=== PATIENT | female | born 1945 | race African-American/Black ===

== ENCOUNTER 2017-04-30 10:59 | Inpatient (IN) | payer OTHER ==
--- NOTE | 2017-04-30 11:14 | PDOC ---
History of Present Illness <Patrick Muniz - Last Filed: 04/30/17 13:44> - General History Source: Patient Exam Limitations: No Limitations - History of Present Illness Initial Comments: 04/30/17 11:55 The patient is a 71 year old female with a significant PMH of former smoker ( quit 3 years ago), insulin dependent diabetes, CAD (s/p stent placement in 2015 , on carvedilol), CVA (2014, on plavix and aspirin), end stage renal failure on dialysis brought in by EMS with worsening shortness of breath on exertion and orthopnea since Saturday. The patient reports that she has dialysis on Saturday, , and Saturday and her last dialysis was this Saturday. She reports that her shortness of breath worsened this morning when going to dialysis. The patient states her shortness of breath is improved with rest. The patient notes that her symptoms were improved by sublingual nitroglycerin and oxygen given by EMS. The patient denies any chest pain, cough, fever, chills, nausea, vomiting, and leg swelling. Vital signs: O2 Sat 92-94 Allergies: statins Past surgical history: Stent placement Social history: Former smoker. No reported alcohol or drug use. 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 Gibbs <Yana Gilbert - Last Filed: 04/30/17 13:59> - General Chief Complaint: Respiratory Stated Complaint: RESPIRATORY DISTRESS Time Seen by Provider: 04/30/17 11:13 Past History - Past Medical History Cardiac Disorders: Yes (STENT) CVA: Yes (2014) COPD: No CHF: Yes Diabetes: Yes Dialysis: Yes (//SAT) HTN: Yes Hypercholesterolemia: Yes Liver Disease: Yes (LIVER CIRRHOSIS) - Surgical History Cardiac Surgery: Yes (STENT) - Suicide/Smoking/Psychosocial Hx Smoking History: Former smoker Have you smoked in the past 12 months: No If you are a former smoker, when did you quit?: 2014 Information on smoking cessation initiated: No Hx Alcohol Use: No Drug/Substance Use Hx: No Substance Use Type: None Hx Substance Use Treatment: No <Patrick Muniz - Last Filed: 04/30/17 13:44> <Yana Gilbert - Last Filed: 04/30/17 13:59> - Past Medical History Allergies/Adverse Reactions: Allergies Allergy/AdvReac Type Severity Reaction Status Date / Time Izkchhk-Oxy-Hgz Reductase AdvReac Unknown Verified 04/30/17 11:01 Inhibitor Home Medications: Ambulatory Orders Carvedilol [Coreg -] 12.5 mg PO BID 04/02/17 Clopidogrel Bisulfate [Clopidogrel] 75 mg PO DAILY 04/02/17 Acetaminophen [Tylenol .Regular Strength -] 650 mg PO Q6H PRN #0 tablet Aspirin Coated [Ecotrin -] 81 mg PO DAILY tab 04/06/17 Calcitriol [Calcitriol -] 0.25 mcg PO DAILY #30 tab 04/06/17 Insulin (Novolog) [Novolog -] 5 units SQ TIDAC units 04/06/17 Insulin Glargine,Hum.rec.anlog [Lantus Solostar PEN (NF)] 18 units SQ HS #1 pen 04/06/17 Ipratropium/Albuterol Sulfate [Combivent Respimat Inhal [place]] 4 gm IH QID #1 aer.w.adap 04/06/17 Review of Systems - Review of Systems Constitutional: No: Chills, Fever Respiratory: Yes: Orthopnea, Shortness of Breath, SOB with Exertion. No: Cough Cardiac (ROS): No: Chest Pain, Edema, Syncope ABD/GI: No: Nausea, Vomiting Neurological: No: Headache, Weakness, Ataxia All Other Systems: Reviewed and Negative <Patrick Muniz - Last Filed: 04/30/17 13:44> - Review of Systems Able to Perform ROS?: Yes <Yana Gilbert - Last Filed: 04/30/17 13:59> *Physical Exam - Vital Signs Last Vital Signs Temp Pulse Resp BP Pulse Ox 86 22 187/80 98 04/30/17 11:02 04/30/17 11:02 04/30/17 11:02 04/30/17 11:02 <Patrick Muniz - Last Filed: 04/30/17 13:44> - Vital Signs Last Vital Signs Temp Pulse Resp BP Pulse Ox 97.8 F 82 22 187/80 98 04/30/17 11:02 04/30/17 11:02 04/30/17 11:02 04/30/17 11:02 04/30/17 11:02 - Physical Exam Comments: 04/30/17 11:48 GENERAL: Patient is awake, alert, and fully oriented. HEAD: Normal with no signs of trauma. EYES: Pupils equal, round and reactive to light, extraocular movements intact, sclera anicteric, conjunctiva clear with no pallor. ENT: Ears normal, nares patent, oropharynx clear without exudates. Moist mucous membranes. NECK: Normal range of motion, supple without lymphadenopathy, JVD, or masses. LUNGS: (+) Slightly decreased breath sounds on the right base. (+)Tachypnea No wheeze/crackles. HEART: (+) 2/6 systolic ejection on the right upper sternal border. ABDOMEN: Soft/nontender/nondistended. BS wnl. No guarding or rebound. No palpable masses. No hepatosplenomegaly. EXTREMITIES: (+) Trace pretibial edema. Normal range of motion. No clubbing or cyanosis. No cords, erythema, or tenderness. NEUROLOGICAL: (+) Patient is speaking in 2-3 word sentences. Cranial nerves II through XII grossly intact. PSYCH: Normal mood, normal affect. 04/30/17 11:54 <Yana Gilbert - Last Filed: 04/30/17 13:59> Heart Score/ECG Review #1 ECG reviewed & interpreted by me at: 11:09 General ECG Interpretation: Sinus Rhythm, Normal Rate (81), Normal Intervals ( qtc 490), No acute ischemic changes <Patrick Muniz - Last Filed: 04/30/17 13:44> ED Treatment Course - LABORATORY CBC & Chemistry Diagram: 04/30/17 12:25 04/30/17 12:25 <Patrick Muniz - Last Filed: 04/30/17 13:44> - LABORATORY CBC & Chemistry Diagram: 04/30/17 12:25 04/30/17 12:25 <Yana Gilbert - Last Filed: 04/30/17 13:59> Medical Decision Making - Medical Decision Making 04/30/17 11:36 A portion of this note was documented by scribe services under my direction. I have reviewed the details of the note, within reason, and agree with the documentation with the following case summary and management plan written by me. 71-year-old female with history of insulin-dependent diabetes, CAD with CO, CVA , end-stage renal on Saturday//Saturday dialysis presents with shortness of breath, brought in by EMS. Last dialysis was Saturday, has had progressive dyspnea on exertion and orthopnea since Saturday, exacerbated this morning on her way to dialysis. No chest pain, no fevers or chills or cough, symptoms improved after she was given nitroglycerin by EMS. Vitals as noted, tachypnea, O2 sat on room air is 92%, improves to 99% on 2 L Speaks 3-4 words at a time, otherwise subjectively more comfortable Decreased breath sounds right base, otherwise clear Trace edema 71-year-old female with end-stage renal disease on dialysis and cardiac history presents with worsening shortness of breath over the last 72 hours, question volume overload from renal failure versus acute CHF. Improved after sublingual nitroglycerin and oxygen applied. Labs, EKG Chest x-ray Blood pressure control Will need dialysis, will contact Dr. Altamirano Admission 04/30/17 13:44 K 5.7, Cr 6.7, Trop 0.1. Feels much better after meds and O2, CXR shows moderate cardiomegaly with congestion and R pleural effusion, consistent with exam. Dr. Gibbs consulted for HD. Accepted for inpatient med/surg by Dr. Cervantes. <Patrick Muniz - Last Filed: 04/30/17 13:44> - Medical Decision Making 1:50pm Consulted with Dr. Major. Will arrange for dialysis. <Yana Gilbert - Last Filed: 04/30/17 13:59> *DC/Admit/Observation/Transfer - Discharge Dispostion Admit: Yes <Patrick Muniz - Last Filed: 04/30/17 13:44> - Attestations Scribe Attestion: 04/30/17 12:20 Documentation prepared by Yana Gilbert, acting as medical lab technician for Patrick Muniz MD. <Yana Gilbert - Last Filed: 04/30/17 13:59> Diagnosis at time of Disposition: Shortness of breath, ESRD (end stage renal disease) on dialysis, Hyperkalemia - Discharge Dispostion Condition at time of disposition: Fair - Referrals Referrals: Tamiko Gibbs MD [Primary Care Provider] - - Patient Instructions - Post Discharge Activity
[2017-04-30] MEDS ORDERED: FUROSEMIDE 40 MG/4 ML INJECTABLE VIAL IVPUSH ONE (11:26)
[2017-04-30] MEDS ORDERED: ASPIRIN 81 MG CHEWABLE TABLETS PO ONE (11:26)
[2017-04-30] MEDS ORDERED: NITROGLYCERIN 2% OINTMENT - 1GM PACKET TD ONE ×2 (11:28→12:16)
[2017-04-30] MEDS ORDERED: ASPIRIN 81 MG CHEWABLE TABLETS ONE (12:15)
--- NOTE | 2017-04-30 12:16 | EKG ---
Test Reason : Blood Pressure : / mmHG Vent. Rate : 081 BPM Atrial Rate : 081 BPM P-R Int : 134 ms QRS Dur : 080 ms QT Int : 422 ms P-R-T Axes : 047 033 023 degrees QTc Int : 490 ms NORMAL SINUS RHYTHM PROLONGED QT ABNORMAL ECG WHEN COMPARED WITH ECG OF 02-APR-2017 13:48, PREMATURE SUPRAVENTRICULAR COMPLEXES ARE NO LONGER PRESENT Confirmed by GULSHAN MELENDREZ, TROY ([id number]) on 04/30/2017 12:15:56 PM Referred By: Confirmed By:TROY GAFFNEY MD
[2017-04-30 12:40] LABS: BASOPHIL 0.6 % (0-2.0); EOSINOPHIL 0.5 % (0-4.5); MCH 28.8 pg (25.7-33.7); MCHC 31.2 g/dl (32.0-36.0); MEAN CELL VOLUME 92.4 fl (80-96); MEAN PLT VOLUME 9.7 fl (7.5-11.1); NEUTROPHILS 82.3 % (42.8-82.8); PLATELET COUNT 161 K/MM3 (134-434); WHITE BLOOD COUNT 10.3 K/mm3 (4.0-10.0)
[2017-04-30 13:03] LABS: ALBUMIN 3.6 g/dl (3.4-5.0); ANION GAP 9 (8-16); BILIRUBIN,TOTAL 0.2 mg/dL (0.2-1.0); CO2 22 mmol/L (21-32); CREATININE 6.7 mg/dL (0.55-1.02); GLUCOSE,RANDOM 178 mg/dL (74-106); SGOT/AST 18 U/L (15-37); SGPT/ALT 26 U/L (12-78); TOT PROT 6.9 g/dl (6.4-8.2)
[2017-04-30 13:18] LABS: ALK PHOS 151 U/L (45-117); CPK 64 IU/L (26-192)
[2017-04-30 13:29] LABS: INR 0.98 (0.82-1.09); PROTHROMBIN TIME (PATIENT) 11.1 SEC (9.98-11.88)
[2017-04-30 15:26] VITALS: BMI 36.1
--- NOTE | 2017-04-30 15:33 | CON.CARD ---
Consult Consult Specialty:: Cardiology Referred by:: Dr Cervantes Reason for Consultation:: sob - History of Present Illness Chief Complaint: sob History of Present Illness: She is a 71 year old female with a PMH of CAD (s/p stent placement 11/2015 on Plavix and ASA), CVA (2014), ESRD on HD, and 30 pack year smoking history ( cessation for the past 3 years). She presents now with LORA. She states that this SOB has been gradual over the past 3 days. Echocardiogram 04/03/17: EF 66% Normal LV size and function Normal RV size and function Reduced diastolic compliance Elevated pulmonary pressures RVSP 50 - [address] chest no PE. 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 Travel: Yes ([place]) Home Medications - Allergies Allergies/Adverse Reactions: Allergies Allergy/AdvReac Type Severity Reaction Status Date / Time Gdsqwbz-Yiv-Ktj Reductase AdvReac Unknown Verified 04/30/17 11:01 Inhibitor - Home Medications Home Medications: Ambulatory Orders Carvedilol [Coreg -] 12.5 mg PO BID 04/02/17 Clopidogrel Bisulfate [Clopidogrel] 75 mg PO DAILY 04/02/17 Acetaminophen [Tylenol .Regular Strength -] 650 mg PO Q6H PRN #0 tablet Aspirin Coated [Ecotrin -] 81 mg PO DAILY tab 04/06/17 Calcitriol [Calcitriol -] 0.25 mcg PO DAILY #30 tab 04/06/17 Insulin (Novolog) [Novolog -] 5 units SQ TIDAC units 04/06/17 Insulin Glargine,Hum.rec.anlog [Lantus Solostar PEN (NF)] 18 units SQ HS #1 pen 04/06/17 Ipratropium/Albuterol Sulfate [Combivent Respimat Inhal [place]] 4 gm IH QID #1 aer.w.adap 04/06/17 Family Disease History - Family Disease History Family Disease History: Other: Father ( 97), Mother (: 62 CKD/CAD) Vital Signs: Vital Signs Temperature 97.8 F 04/30/17 11:02 Pulse Rate 68 04/30/17 14:50 Respiratory Rate 18 04/30/17 14:50 Blood Pressure 173/151 04/30/17 14:50 O2 Sat by Pulse Oximetry (%) 100 04/30/17 14:50 Constitutional: Yes: No Distress, Calm Eyes: Yes: Conjunctiva Clear, EOM Intact HENT: Yes: Atraumatic, Normocephalic Neck: Yes: Supple, Trachea Midline Respiratory: Yes: Rales (rt base>lt base) Gastrointestinal: Yes: Normal Bowel Sounds, Soft, Abdomen, Obese Renal/: Yes: WNL Cardiovascular: Yes: Regular Rate and Rhythm JVD: Yes Carotid Bruit: No PMI: Displaced Heart Sounds: Yes: S1, S2 Murmur: Yes: Systolic Murmur, Grade 2 Musculoskeletal: Yes: WNL Extremities: Yes: WNL Edema: No Peripheral Pulses WNL: Yes - Other Data Labs, Other Data: CBC, BMP 04/30/17 12:25 04/30/17 12:25 INR, PTT INR 0.98 (0.82-1.09) 04/30/17 12:25 Troponin, BNP 04/30/17 12:25 Troponin I 0.10 H B-Natriuretic Peptide 57463.29 H Troponin, BNP 04/30/17 12:25 Troponin I 0.10 H B-Natriuretic Peptide 88170.29 H Imaging - Results Chest X-ray: Report Reviewed (cm, inc vasc markings, rt effusion) EKG: Report Reviewed (nsr prolonged qt) Problem List - Problems (1) Shortness of breath Assessment/Plan: I believe that her sob is both pulmonary and fluid overload. Her pulm htn is due to renal disease and fluid overload. needs HD. No evidence of ACS. will benefit probably from reduction in dry weight. No need for further cardiac testing. Code(s): R06.02 - SHORTNESS OF BREATH
[2017-04-30] MEDS ORDERED: HEPARIN NA (PORCINE) 5,000 UNITS/ML 1ML VIAL IVPUSH ONE (16:00)
--- NOTE | 2017-04-30 16:37 | CON.NEP ---
Consult Consult Specialty:: Nephrology Referred by:: Dr. Muniz Reason for Consultation:: ESRD on HD, Fluid overload - History of Present Illness Chief Complaint: SOB History of Present Illness: This is a 71 year old woman with PMhx of ESRD on HD (TTS) secondary to hypertensive + diabetic nephropathy, CAD s/p PCI and stent placement, CVA, Former smoker who presents with progressive SOB. Pt last had dialysis on Saturday w/o issues. Pt reports compliance with all her dialysis treatments. Denies any dietary indiscretion. Pt does make some urine. No chest pain, wheezing, fever/chills. 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 Travel: Yes ([place]) Home Medications - Allergies Allergies/Adverse Reactions: Allergies Allergy/AdvReac Type Severity Reaction Status Date / Time Vikczxg-Rqo-Qss Reductase AdvReac Unknown Verified 04/30/17 11:01 Inhibitor - Home Medications Home Medications: Ambulatory Orders Carvedilol [Coreg -] 12.5 mg PO BID 04/02/17 Clopidogrel Bisulfate [Clopidogrel] 75 mg PO DAILY 04/02/17 Acetaminophen [Tylenol .Regular Strength -] 650 mg PO Q6H PRN #0 tablet Aspirin Coated [Ecotrin -] 81 mg PO DAILY tab 04/06/17 Ipratropium/Albuterol Sulfate [Combivent Respimat Inhal [place]] 4 gm IH QID #1 aer.w.adap 04/06/17 Cyanocobalamin [Vitamin B12 -] 500 mcg PO DAILY 04/30/17 Doxazosin Mesylate [Cardura -] 1 mg PO DAILY 04/30/17 Hydralazine HCl 100 mg PO TID 04/30/17 Insulin (Levemir) [Levemir Vial] 28 unit SQ HS 04/30/17 Insulin (Novolog) [Novolog -] 10 units SQ BID 04/30/17 Insulin Aspart [Novolog] 15 unit SQ ACDIN 04/30/17 Insulin Glargine,Hum.rec.anlog [Lantus Solostar PEN (NF)] 28 units SQ HS Isosorbide Mononitrate [Isosorbide Mononitrate ER] 60 mg PO DAILY 04/30/17 Vitamin B Comp W-C [Nephro-Katie -] 1 tablet PO DAILY 04/30/17 Family Disease History - Family Disease History Family Disease History: Other: Father ( 97), Mother (: 62 CKD/CAD) Review of Systems - Review of Systems Constitutional: reports: No Symptoms Eyes: reports: No Symptoms HENT: reports: No Symptoms Neck: reports: No Symptoms Cardiovascular: reports: Shortness of Breath. denies: Chest Pain, Edema, Palpitations Respiratory: reports: Cough, Exercise Intolerance, SOB, SOB on Exertion. denies : Snoring, Wheezing Gastrointestinal: reports: No Symptoms Genitourinary: reports: No Symptoms Musculoskeletal: reports: No Symptoms Integumentary: reports: No Symptoms Neurological: reports: No Symptoms Nephrology Consult - Height Height: 5 ft - Weight Weight: 83.915 kg - BMI Body Mass Index (BMI): 36.1 - Lab Results CBC,BMP: CBC, BMP 04/30/17 12:25 04/30/17 12:25 Anion Gap: Anion Gap Anion Gap 9 (8-16) 04/30/17 12:25 - Imaging Chest X-ray: Report Reviewed - Physical Examination Vital Signs: Vital Signs Temperature 97.8 F 04/30/17 11:02 Pulse Rate 68 04/30/17 14:50 Respiratory Rate 18 04/30/17 14:50 Blood Pressure 173/151 04/30/17 14:50 O2 Sat by Pulse Oximetry (%) 100 04/30/17 14:50 Constitutional: Yes: Well Nourished, No Distress, Calm Eyes: Yes: Conjunctiva Clear HENT: Yes: Atraumatic, Normocephalic Neck: Yes: Supple Cardiovascular: Yes: Regular Rate and Rhythm, S1, S2. No: Murmur, Rub Respiratory: Yes: Regular, On Nasal O2, Rhonchi, SOB, SOB on Exertion Gastrointestinal: Yes: Normal Bowel Sounds, Soft, Abdomen, Obese Renal/: No: Anuria, Bladder Distention, CVA Tenderness - Left, CVA Tenderness - Right Access for Hemodialysis: AV Fistula Edema: Yes Edema: LLE: Trace, RLE: Trace Neurological: Yes: Alert, Oriented Problem List - Problems (1) ESRD (end stage renal disease) on dialysis Code(s): N18.6 - END STAGE RENAL DISEASE; Z99.2 - DEPENDENCE ON RENAL DIALYSIS (2) Shortness of breath Code(s): R06.02 - SHORTNESS OF BREATH (3) CAD (coronary artery disease) Code(s): I25.10 - ATHSCL HEART DISEASE OF [place] CORONARY ARTERY W/O ANG PCTRS (4) COPD (chronic obstructive pulmonary disease) Code(s): J44.9 - CHRONIC OBSTRUCTIVE PULMONARY DISEASE, UNSPECIFIED (5) CVA (cerebral vascular accident) Code(s): I63.9 - CEREBRAL INFARCTION, UNSPECIFIED Assessment/Plan 71 year old woman with PMhx of ESRD on HD (TTS) secondary to hypertensive + diabetic nephropathy, CAD s/p PCI and stent placement, CVA, Former smoker who presents with progressive SOB #ESRD on HD with fluid overload and sob etiology likely dietary indiscretion +/- suboptimal UF with HD for urgent HD today with UF goal around 3-3.5L as tolerated low sodium diet, 1.2 L fluid restriction Start Oral Lasix daily Trend daily weights #CAD/CHF Seen by cardiology no evidence of ACS #Hypertension BP is above goal give hydralazine 100mg and Cardura 1mg now goal BP < 150/90 resume remainder of home meds after dialysis Thank you Will follow Rory Major DO
[2017-04-30] MEDS: hydrALAZINE HCL 50 MG TABLET (FP) PO SCH ×2 (17:21→21:31)
[2017-04-30] MEDS ORDERED: PATIENT'S OWN MEDICATION (NON-FORMULARY) (Ipratropium/Albuterol Sulfate [Combivent Respima IH SCH (18:00)
[2017-04-30] MEDS ORDERED: INSULIN (NOVOLOG) ASPART 100 UNITS/ML 10ML VIAL ONE (20:43)
[2017-04-30] MEDS: ACETAMINOPHEN 325 MG TABLET (FP) PO PRN (21:31)
[2017-04-30] MEDS: CARVEDILOL 12.5 MG TABLET (FP) PO SCH (21:31)
[2017-04-30] MEDS: INSULIN SLIDING SCALE (NOVOLOG) 1 VIAL SQ SCH (21:36)
[2017-04-30] MEDS: INSULIN DETEMIR 100 UNITS/ML MDV SQ SCH (21:37)
[2017-04-30] MEDS: HEPARIN NA (PORCINE) 5,000 UNITS/ML 1ML VIAL SQ SCH (21:41)
[2017-04-30] MEDS ORDERED: hydrALAZINE HCL 50 MG TABLET (FP) PO SCH (22:00)
[2017-04-30] MEDS: ALBUTEROL SO4 2.5/IPRATROPIUM 0.5 INH SOL 3 ML VIAL.NEB. NEB SCH (23:40)
[2017-05-01] MEDS: DOXAZOSIN MESYLATE 1 MG TABLET PO SCH ×2 (01:29→13:21)
[2017-05-01] MEDS: ACETAMINOPHEN 325 MG TABLET (FP) PO PRN (03:50)
[2017-05-01] MEDS: hydrALAZINE HCL 50 MG TABLET (FP) PO SCH ×3 (05:42→22:09)
[2017-05-01] MEDS: ALBUTEROL SO4 2.5/IPRATROPIUM 0.5 INH SOL 3 ML VIAL.NEB. NEB SCH ×3 (06:20→18:15)
[2017-05-01] MEDS: INSULIN SLIDING SCALE (NOVOLOG) 1 VIAL SQ SCH ×4 (06:22→22:14)
[2017-05-01 07:13] LABS: BASOPHIL 0.8 % (0-2.0); EOSINOPHIL 1.6 % (0-4.5); MCH 28.8 pg (25.7-33.7); MCHC 32.2 g/dl (32.0-36.0); MEAN CELL VOLUME 89.4 fl (80-96); MEAN PLT VOLUME 9.4 fl (7.5-11.1); NEUTROPHILS 67.5 % (42.8-82.8); PLATELET COUNT 166 K/MM3 (134-434); RDW 15.4 % (11.6-15.6); WHITE BLOOD COUNT 10.6 K/mm3 (4.0-10.0)
[2017-05-01 07:59] LABS: ALBUMIN 3.6 g/dl (3.4-5.0); ANION GAP 10 (8-16); CALCIUM 8.4 mg/dL (8.5-10.1); CO2 30 mmol/L (21-32); MAGNESIUM 1.8 mg/dL (1.8-2.4); SGOT/AST 18 U/L (15-37); SGPT/ALT 23 U/L (12-78)
[2017-05-01 08:03] LABS: ALK PHOS 148 U/L (45-117); BILIRUBIN,TOTAL 0.5 mg/dL (0.2-1.0); CREATININE 4.7 mg/dL (0.55-1.02); GLUCOSE,RANDOM 72 mg/dL (74-106); PHOSPHOROUS 4.4 mg/dL (2.5-4.9); TOT PROT 7.1 g/dl (6.4-8.2)
[2017-05-01] MEDS ORDERED: DOXAZOSIN MESYLATE 1 MG TABLET PO SCH (10:00)
[2017-05-01] MEDS: CYANOCOBALAMIN 1,000 MCG TABLET (FP) PO SCH (10:57)
[2017-05-01] MEDS: CLOPIDOGREL BISULFATE 75 MG TABLET (FP) PO SCH (10:57)
[2017-05-01] MEDS: HEPARIN NA (PORCINE) 5,000 UNITS/ML 1ML VIAL SQ SCH ×2 (10:58→22:10)
[2017-05-01] MEDS: ASPIRIN COATED 81 MG TABLET.EC PO SCH (10:59)
[2017-05-01] MEDS: CARVEDILOL 12.5 MG TABLET (FP) PO SCH ×2 (11:05→22:09)
[2017-05-01] MEDS: ISOSORBIDE MONONITRATE 60 MG TAB.SR.24H (FP) PO SCH (11:05)
[2017-05-01] MEDS: FUROSEMIDE 40 MG TABLET (FP) PO SCH ×2 (11:08→13:41)
[2017-05-01] MEDS: VITAMIN B COMP W-C 1 EA TABLET PO SCH (11:09)
--- NOTE | 2017-05-01 14:20 | PN ---
Progress Note, Physician Chief Complaint: no sob. lying flat. History of Present Illness: She is a 71 year old female with a PMH of CAD (s/p stent placement 11/2015 on Plavix and ASA), CVA (2014), ESRD on HD, and 30 pack year smoking history ( cessation for the past 3 years). She presents now with LORA. She states that this SOB has been gradual over the past 3 days. Improved post HD. Echocardiogram 04/03/17: EF 66% Normal LV size and function Normal RV size and function Reduced diastolic compliance Elevated pulmonary pressures RVSP 50 - [address] chest no PE. - Current Medication List Current Medications: Active Medications Acetaminophen (Tylenol -) 650 mg PO Q6H PRN PRN Reason: FEVER OR PAIN Last Admin: 05/01/17 03:50 Dose: 650 mg Albuterol/Ipratropium (Duoneb -) 1 amp NEB QIDR [facility] Last Admin: 05/01/17 12:00 Dose: 1 amp Aspirin (Ecotrin -) 81 mg PO DAILY [facility] Last Admin: 05/01/17 10:59 Dose: 81 mg Carvedilol (Coreg -) 12.5 mg PO BID [facility] Last Admin: 05/01/17 11:05 Dose: 12.5 mg Clopidogrel Bisulfate (Plavix -) 75 mg PO DAILY [facility] Last Admin: 05/01/17 10:57 Dose: 75 mg Cyanocobalamin (Vitamin B12 -) 500 mcg PO DAILY [facility] Last Admin: 05/01/17 10:57 Dose: 500 mcg Doxazosin Mesylate (Cardura -) 1 mg PO DAILY [facility] Last Admin: 05/01/17 13:21 Dose: Not Given Furosemide (Lasix -) 40 mg PO DAILY [facility] Last Admin: 05/01/17 13:41 Dose: 40 mg Heparin Sodium (Porcine) (Heparin -) 5,000 unit SQ BID [facility] Last Admin: 05/01/17 10:58 Dose: Not Given Hydralazine HCl (Apresoline -) 100 mg PO TID [facility] Last Admin: 05/01/17 05:42 Dose: 100 mg Insulin Aspart (Novolog Vial Sliding Scale -) 1 vial SQ ACHS [facility] PRN Reason: Protocol Last Admin: 05/01/17 12:06 Dose: 6 units Insulin Detemir (Levemir Vial) 28 units SQ HS [facility] Last Admin: 04/30/17 21:37 Dose: 28 units Isosorbide Mononitrate (Imdur -) 60 mg PO DAILY [facility] Last Admin: 05/01/17 11:05 Dose: 60 mg Multivit/Ca Carb/B Cmplx/FA/Prenat (Nephro-Katie -) 1 tablet PO DAILY [facility] Last Admin: 05/01/17 11:09 Dose: Not Given - Objective Vital Signs: Vital Signs Temperature 99.3 F 05/01/17 11:00 Pulse Rate 74 05/01/17 11:00 Respiratory Rate 18 05/01/17 11:00 Blood Pressure 140/60 05/01/17 11:00 O2 Sat by Pulse Oximetry (%) 100 04/30/17 23:00 Constitutional: Yes: No Distress, Calm Eyes: Yes: Conjunctiva Clear, EOM Intact HENT: Yes: Atraumatic, Normocephalic Neck: Yes: Supple, Trachea Midline Cardiovascular: Yes: Regular Rate and Rhythm Respiratory: Yes: CTA Bilaterally Gastrointestinal: Yes: Normal Bowel Sounds, Soft, Abdomen, Obese Extremities: Yes: WNL Edema: No Peripheral Pulses WNL: Yes Labs: CBC, BMP 05/01/17 06:15 05/01/17 06:15 INR, PTT INR 0.98 (0.82-1.09) 04/30/17 12:25 Problem List - Problems (1) Shortness of breath Assessment/Plan: I believe that her sob is both pulmonary and fluid overload. Her pulm htn is due to renal disease and fluid overload. needs HD. No evidence of ACS. will benefit probably from reduction in dry weight. No need for further cardiac testing. will see as needed. Code(s): R06.02 - SHORTNESS OF BREATH
--- NOTE | 2017-05-01 17:33 | PN ---
Progress Note (short form) - Note Progress Note: Renal follow up for ESRD on HD Pt seen and examined at the bedside awake and alert no acute complaints no sob, chest pain s/p HD yesterday with improvement in breathing Vital Signs Temperature 98.2 F 05/01/17 15:28 Pulse Rate 74 05/01/17 15:28 Respiratory Rate 18 05/01/17 15:28 Blood Pressure 110/52 05/01/17 15:28 O2 Sat by Pulse Oximetry (%) 100 04/30/17 23:00 Intake & Output 04/28/17 04/29/17 04/30/17 05/01/17 23:59 23:59 23:59 23:59 Intake Total 850 Balance 850 Weight 83.915 kg 85.139 kg NAD awake and alert RRR CTA no LE edema CBC, BMP 05/01/17 06:15 05/01/17 06:15 Current Medications Acetaminophen (Tylenol -) 650 mg PO Q6H PRN PRN Reason: FEVER OR PAIN Last Admin: 05/01/17 03:50 Dose: 650 mg Albuterol/Ipratropium (Duoneb -) 1 amp NEB QIDR [facility] Last Admin: 05/01/17 12:00 Dose: 1 amp Aspirin (Ecotrin -) 81 mg PO DAILY [facility] Last Admin: 05/01/17 10:59 Dose: 81 mg Carvedilol (Coreg -) 12.5 mg PO BID [facility] Last Admin: 05/01/17 11:05 Dose: 12.5 mg Clopidogrel Bisulfate (Plavix -) 75 mg PO DAILY [facility] Last Admin: 05/01/17 10:57 Dose: 75 mg Cyanocobalamin (Vitamin B12 -) 500 mcg PO DAILY [facility] Last Admin: 05/01/17 10:57 Dose: 500 mcg Doxazosin Mesylate (Cardura -) 1 mg PO DAILY [facility] Last Admin: 05/01/17 13:21 Dose: Not Given Furosemide (Lasix -) 40 mg PO DAILY [facility] Last Admin: 05/01/17 13:41 Dose: 40 mg Heparin Sodium (Porcine) (Heparin -) 5,000 unit SQ BID [facility] Last Admin: 05/01/17 10:58 Dose: Not Given Hydralazine HCl (Apresoline -) 100 mg PO TID [facility] Last Admin: 05/01/17 14:48 Dose: Not Given Insulin Aspart (Novolog Vial Sliding Scale -) 1 vial SQ ACHS [facility] PRN Reason: Protocol Last Admin: 05/01/17 17:13 Dose: Not Given Insulin Detemir (Levemir Vial) 28 units SQ HS [facility] Last Admin: 04/30/17 21:37 Dose: 28 units Isosorbide Mononitrate (Imdur -) 60 mg PO DAILY [facility] Last Admin: 05/01/17 11:05 Dose: 60 mg Multivit/Ca Carb/B Cmplx/FA/Prenat (Nephro-Katie -) 1 tablet PO DAILY [facility] Last Admin: 05/01/17 11:09 Dose: Not Given 71 year old woman with PMhx of ESRD on HD (TTS) secondary to hypertensive + diabetic nephropathy, CAD s/p PCI and stent placement, CVA, Former smoker who presents with progressive SOB #ESRD on HD with fluid overload and sob clinically improved for dialysis tomorrow morning with UF as tolerated #CAD/CHF Seen by cardiology no evidence of ACS #Hypertension Continue Coreg and Hydralazine BID, Lasix Daily continue Imdur if indicated by cardiology can d/c cardura goal BP < 140/90 will titrate meds as needed to achieve goal BP Thank you Will follow Rory Major DO Problem List - Problems (1) ESRD (end stage renal disease) on dialysis Code(s): N18.6 - END STAGE RENAL DISEASE; Z99.2 - DEPENDENCE ON RENAL DIALYSIS (2) Shortness of breath Code(s): R06.02 - SHORTNESS OF BREATH (3) CAD (coronary artery disease) Code(s): I25.10 - ATHSCL HEART DISEASE OF [place] CORONARY ARTERY W/O ANG PCTRS (4) COPD (chronic obstructive pulmonary disease) Code(s): J44.9 - CHRONIC OBSTRUCTIVE PULMONARY DISEASE, UNSPECIFIED (5) CVA (cerebral vascular accident) Code(s): I63.9 - CEREBRAL INFARCTION, UNSPECIFIED
--- NOTE | 2017-05-01 18:47 | HP ---
Admitting History and Physical - Primary Care Physician PCP: Theresa Cervantes - Admission Chief Complaint: SOB History of Present Illness: The patient is a 71 year old female with a significant PMH of former smoker ( quit 3 years ago), insulin dependent diabetes, CAD (s/p stent placement in 2015 , on carvedilol), CVA (2014, on plavix and aspirin), end stage renal failure on dialysis brought in by EMS with worsening shortness of breath on exertion and orthopnea since Saturday. The patient reports that she has dialysis on Saturday, , and Saturday and her last dialysis was this Saturday. She reports that her shortness of breath worsened this morning when going to dialysis. The patient states her shortness of breath is improved with rest. The patient notes that her symptoms were improved by sublingual nitroglycerin and oxygen given by EMS. The patient denies any chest pain, cough, fever, chills, nausea, vomiting, and leg swelling. 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 of Recent Travel: Yes ([place]) Home Medications - Allergies Allergies/Adverse Reactions: Allergies Allergy/AdvReac Type Severity Reaction Status Date / Time Mfdemhd-Tdc-Ahb Reductase AdvReac Unknown Verified 04/30/17 11:01 Inhibitor - Home Medications Home Medications: Ambulatory Orders Carvedilol [Coreg -] 12.5 mg PO BID 04/02/17 Clopidogrel Bisulfate [Clopidogrel] 75 mg PO DAILY 04/02/17 Acetaminophen [Tylenol .Regular Strength -] 650 mg PO Q6H PRN #0 tablet Aspirin Coated [Ecotrin -] 81 mg PO DAILY tab 04/06/17 Ipratropium/Albuterol Sulfate [Combivent Respimat Inhal [place]] 4 gm IH QID #1 aer.w.adap 04/06/17 Cyanocobalamin [Vitamin B12 -] 500 mcg PO DAILY 04/30/17 Doxazosin Mesylate [Cardura -] 1 mg PO DAILY 04/30/17 Hydralazine HCl 100 mg PO TID 04/30/17 Insulin (Levemir) [Levemir Vial] 28 unit SQ HS 04/30/17 Insulin (Novolog) [Novolog -] 10 units SQ BID 04/30/17 Insulin Aspart [Novolog] 15 unit SQ ACDIN 04/30/17 Insulin Glargine,Hum.rec.anlog [Lantus Solostar PEN (NF)] 28 units SQ HS Isosorbide Mononitrate [Isosorbide Mononitrate ER] 60 mg PO DAILY 04/30/17 Vitamin B Comp W-C [Nephro-Katie -] 1 tablet PO DAILY 04/30/17 Family Disease History - Family Disease History Family Disease History: Other: Father ( 97), Mother (: 62 CKD/CAD) Review of Systems - Review of Systems Constitutional: reports: Weakness Eyes: reports: No Symptoms HENT: reports: No Symptoms Neck: reports: No Symptoms Cardiovascular: reports: Shortness of Breath Respiratory: reports: SOB, SOB on Exertion Gastrointestinal: reports: No Symptoms Genitourinary: reports: No Symptoms Breasts: reports: No Symptoms Reported Musculoskeletal: reports: No Symptoms Integumentary: reports: No Symptoms Neurological: reports: No Symptoms Endocrine: reports: No Symptoms Hematology/Lymphatic: reports: No Symptoms Psychiatric: reports: No Symptoms Physical Examination Vital Signs: Vital Signs Temperature 98.3 F 05/01/17 18:00 Pulse Rate 82 05/01/17 18:00 Respiratory Rate 20 05/01/17 18:00 Blood Pressure 134/86 05/01/17 18:00 O2 Sat by Pulse Oximetry (%) 100 04/30/17 23:00 Constitutional: Yes: Well Nourished, No Distress, Calm Cardiovascular: Yes: Regular Rate and Rhythm Respiratory: Yes: Regular Musculoskeletal: Yes: WNL Extremities: Yes: WNL Edema: No Peripheral Pulses WNL: Yes Neurological: Yes: Alert, Oriented Psychiatric: Yes: Alert, Oriented Labs: CBC, BMP 05/01/17 06:15 05/01/17 06:15 Imaging - Results Chest X-ray: Report Reviewed Problem List - Problems (1) ESRD (end stage renal disease) on dialysis Assessment/Plan: -s/p dialysis yesterday, feels much better -seen by Nephrology -Cr improved Code(s): N18.6 - END STAGE RENAL DISEASE; Z99.2 - DEPENDENCE ON RENAL DIALYSIS (2) Shortness of breath Assessment/Plan: -secondary to Pulmonary congestion/ fluid overload -feels much better -Nasal o2 - Code(s): R06.02 - SHORTNESS OF BREATH (3) COPD (chronic obstructive pulmonary disease) Assessment/Plan: -nasal o2 as needed -nebulizer treatment Code(s): J44.9 - CHRONIC OBSTRUCTIVE PULMONARY DISEASE, UNSPECIFIED (4) Pulmonary HTN Assessment/Plan: -seen by cardiology -secondary to ESRD Code(s): I27.20 - PULMONARY HYPERTENSION, UNSPECIFIED (5) Hyperkalemia Assessment/Plan: -resolved after dialysis Code(s): E87.5 - HYPERKALEMIA Assessment/Plan see problem list
[2017-05-01] MEDS ORDERED: INSULIN (NOVOLOG) ASPART 100 UNITS/ML 10ML VIAL ONE (21:58)
[2017-05-01] MEDS: INSULIN DETEMIR 100 UNITS/ML MDV SQ SCH (22:15)
[2017-05-02] MEDS: ALBUTEROL SO4 2.5/IPRATROPIUM 0.5 INH SOL 3 ML VIAL.NEB. NEB SCH ×3 (00:19→12:05)
[2017-05-02] MEDS: INSULIN SLIDING SCALE (NOVOLOG) 1 VIAL SQ SCH ×2 (06:24→12:51)
[2017-05-02] MEDS ORDERED: HEPARIN NA (PORCINE) 5,000 UNITS/ML 1ML VIAL IVPUSH ONE (07:15)
[2017-05-02 09:44] LABS: MCH 28.8 pg (25.7-33.7); MCHC 31.7 g/dl (32.0-36.0); MEAN CELL VOLUME 90.7 fl (80-96); MEAN PLT VOLUME 10.3 fl (7.5-11.1); PLATELET COUNT 164 K/MM3 (134-434); RDW 15.7 % (11.6-15.6); WHITE BLOOD COUNT 9.7 K/mm3 (4.0-10.0)
[2017-05-02] MEDS ORDERED: FUROSEMIDE 40 MG TABLET (FP) PO SCH (10:00)
[2017-05-02 10:12] LABS: ANION GAP 14 (8-16); CO2 23 mmol/L (21-32)
[2017-05-02 10:15] LABS: CALCIUM 7.3 mg/dL (8.5-10.1); CREATININE 6.4 mg/dL (0.55-1.02); PHOSPHOROUS 5.4 mg/dL (2.5-4.9)
[2017-05-02] MEDS: CARVEDILOL 12.5 MG TABLET (FP) PO SCH (10:25)
[2017-05-02] MEDS: ASPIRIN COATED 81 MG TABLET.EC PO SCH (10:25)
[2017-05-02] MEDS: hydrALAZINE HCL 50 MG TABLET (FP) PO SCH (10:25)
[2017-05-02] MEDS: HEPARIN NA (PORCINE) 5,000 UNITS/ML 1ML VIAL SQ SCH (10:25)
[2017-05-02] MEDS: ISOSORBIDE MONONITRATE 60 MG TAB.SR.24H (FP) PO SCH (10:26)
[2017-05-02] MEDS: CLOPIDOGREL BISULFATE 75 MG TABLET (FP) PO SCH (10:26)
[2017-05-02] MEDS: VITAMIN B COMP W-C 1 EA TABLET PO SCH (10:26)
[2017-05-02] MEDS: CYANOCOBALAMIN 1,000 MCG TABLET (FP) PO SCH (10:26)
[2017-05-02 10:49] LABS: GLUCOSE,RANDOM 394 mg/dL (74-106)
--- NOTE | 2017-05-02 10:59 | PN ---
Progress Note (short form) - Note Progress Note: Renal follow up for ESRD on HD Pt seen and examined during dialysis KWAN via AVF, BF is at goal BP stable, goal UF is 2-2.5L pt without any acute complaints. Vital Signs Temperature 98.4 F 05/02/17 08:50 Pulse Rate 66 05/02/17 09:55 Respiratory Rate 18 05/02/17 09:55 Blood Pressure 156/72 05/02/17 09:55 O2 Sat by Pulse Oximetry (%) 97 05/01/17 21:00 Intake & Output 04/29/17 04/30/17 05/01/17 05/02/17 23:59 23:59 23:59 23:59 Intake Total 1600 250 Balance 1600 250 Weight 83.915 kg 85.139 kg 85.593 kg NAD awake and alert RRR CTA no LE edema CBC, BMP 05/02/17 09:00 05/02/17 09:00 Current Medications Acetaminophen (Tylenol -) 650 mg PO Q6H PRN PRN Reason: FEVER OR PAIN Last Admin: 05/01/17 03:50 Dose: 650 mg Albuterol/Ipratropium (Duoneb -) 1 amp NEB QIDR [facility] Last Admin: 05/02/17 06:29 Dose: Not Given Aspirin (Ecotrin -) 81 mg PO DAILY [facility] Last Admin: 05/02/17 10:25 Dose: Not Given Carvedilol (Coreg -) 12.5 mg PO BID [facility] Last Admin: 05/02/17 10:25 Dose: Not Given Clopidogrel Bisulfate (Plavix -) 75 mg PO DAILY [facility] Last Admin: 05/02/17 10:26 Dose: Not Given Cyanocobalamin (Vitamin B12 -) 500 mcg PO DAILY [facility] Last Admin: 05/02/17 10:26 Dose: Not Given Furosemide (Lasix -) 80 mg PO DAILY [facility] Last Admin: 05/02/17 10:26 Dose: Not Given Heparin Sodium (Porcine) (Heparin -) 5,000 unit SQ BID [facility] Last Admin: 05/02/17 10:25 Dose: Not Given Hydralazine HCl (Apresoline -) 100 mg PO BID [facility] Last Admin: 05/02/17 10:25 Dose: Not Given Insulin Aspart (Novolog Vial Sliding Scale -) 1 vial SQ ACHS [facility] PRN Reason: Protocol Last Admin: 05/02/17 06:24 Dose: Not Given Insulin Detemir (Levemir Vial) 28 units SQ HS [facility] Last Admin: 05/01/17 22:15 Dose: 28 units Isosorbide Mononitrate (Imdur -) 60 mg PO DAILY [facility] Last Admin: 05/02/17 10:26 Dose: Not Given Multivit/Ca Carb/B Cmplx/FA/Prenat (Nephro-Katie -) 1 tablet PO DAILY [facility] Last Admin: 05/02/17 10:26 Dose: Not Given 71 year old woman with PMhx of ESRD on HD (TTS) secondary to hypertensive + diabetic nephropathy, CAD s/p PCI and stent placement, CVA, Former smoker who presents with progressive SOB #ESRD on HD with fluid overload and sob tolerating dialysis well this am Renal Diet #CAD/CHF Seen by cardiology no evidence of ACS #Hypertension Continue Hydralazine 100mg BID, Coreg 12.5mg BID, Lasix 80mg Daily, Imdur 60mg Daily stable for discharge Rory Major DO Problem List - Problems (1) ESRD (end stage renal disease) on dialysis Code(s): N18.6 - END STAGE RENAL DISEASE; Z99.2 - DEPENDENCE ON RENAL DIALYSIS (2) Shortness of breath Code(s): R06.02 - SHORTNESS OF BREATH (3) CAD (coronary artery disease) Code(s): I25.10 - ATHSCL HEART DISEASE OF [place] CORONARY ARTERY W/O ANG PCTRS (4) COPD (chronic obstructive pulmonary disease) Code(s): J44.9 - CHRONIC OBSTRUCTIVE PULMONARY DISEASE, UNSPECIFIED (5) CVA (cerebral vascular accident) Code(s): I63.9 - CEREBRAL INFARCTION, UNSPECIFIED
--- NOTE | 2017-05-02 11:39 | PN ---
Progress Note, Physician Chief Complaint: SOB History of Present Illness: -seen in dialysis -feels much better -hypoglycemia noted last night, likely due to controlled diet while in the hospital. Doesn't see any [employer]. Would adjust Lantus at home -seen by Nephrology- cleared for discharge after dialysis - Current Medication List Current Medications: Active Medications Acetaminophen (Tylenol -) 650 mg PO Q6H PRN PRN Reason: FEVER OR PAIN Last Admin: 05/01/17 03:50 Dose: 650 mg Albuterol/Ipratropium (Duoneb -) 1 amp NEB QIDR [facility] Last Admin: 05/02/17 06:29 Dose: Not Given Aspirin (Ecotrin -) 81 mg PO DAILY [facility] Last Admin: 05/02/17 10:25 Dose: Not Given Carvedilol (Coreg -) 12.5 mg PO BID [facility] Last Admin: 05/02/17 10:25 Dose: Not Given Clopidogrel Bisulfate (Plavix -) 75 mg PO DAILY [facility] Last Admin: 05/02/17 10:26 Dose: Not Given Cyanocobalamin (Vitamin B12 -) 500 mcg PO DAILY [facility] Last Admin: 05/02/17 10:26 Dose: Not Given Furosemide (Lasix -) 80 mg PO DAILY [facility] Last Admin: 05/02/17 10:26 Dose: Not Given Heparin Sodium (Porcine) (Heparin -) 5,000 unit SQ BID [facility] Last Admin: 05/02/17 10:25 Dose: Not Given Hydralazine HCl (Apresoline -) 100 mg PO BID [facility] Last Admin: 05/02/17 10:25 Dose: Not Given Insulin Aspart (Novolog Vial Sliding Scale -) 1 vial SQ ACHS [facility] PRN Reason: Protocol Last Admin: 05/02/17 06:24 Dose: Not Given Insulin Detemir (Levemir Vial) 28 units SQ HS [facility] Last Admin: 05/01/17 22:15 Dose: 28 units Isosorbide Mononitrate (Imdur -) 60 mg PO DAILY [facility] Last Admin: 05/02/17 10:26 Dose: Not Given Multivit/Ca Carb/B Cmplx/FA/Prenat (Nephro-Katie -) 1 tablet PO DAILY [facility] Last Admin: 05/02/17 10:26 Dose: Not Given - Objective Vital Signs: Vital Signs Temperature 98.4 F 05/02/17 08:50 Pulse Rate 66 05/02/17 09:55 Respiratory Rate 18 05/02/17 09:55 Blood Pressure 156/72 05/02/17 09:55 O2 Sat by Pulse Oximetry (%) 97 05/01/17 21:00 Constitutional: Yes: Well Nourished, No Distress, Calm Cardiovascular: Yes: Regular Rate and Rhythm Respiratory: Yes: Regular Gastrointestinal: Yes: Normal Bowel Sounds Edema: No Peripheral Pulses WNL: Yes Neurological: Yes: Alert, Oriented Psychiatric: Yes: Alert, Oriented Labs: CBC, BMP 05/02/17 09:00 05/02/17 09:00 INR, PTT INR 0.98 (0.82-1.09) 04/30/17 12:25 Problem List - Problems (1) ESRD (end stage renal disease) on dialysis Assessment/Plan: -dialysis today -seen by Nephrology -Cr improved Code(s): N18.6 - END STAGE RENAL DISEASE; Z99.2 - DEPENDENCE ON RENAL DIALYSIS (2) Shortness of breath Assessment/Plan: -secondary to Pulmonary congestion/ fluid overload -feels much better -Nasal o2 - Code(s): R06.02 - SHORTNESS OF BREATH (3) COPD (chronic obstructive pulmonary disease) Assessment/Plan: -nasal o2 as needed -nebulizer treatment -Pre and post exercise SpO2 to determine the need for oxygen at home. Code(s): J44.9 - CHRONIC OBSTRUCTIVE PULMONARY DISEASE, UNSPECIFIED (4) Pulmonary HTN Assessment/Plan: -seen by cardiology -secondary to ESRD Code(s): I27.20 - PULMONARY HYPERTENSION, UNSPECIFIED (5) Hyperkalemia Assessment/Plan: -resolved after dialysis Code(s): E87.5 - HYPERKALEMIA (6) HTN (hypertension) Assessment/Plan: Continue Hydralazine 100mg BID, Coreg 12.5mg BID, Lasix 80mg Daily, Imdur 60mg Daily at home -Follow up with Cardiology outpatient Code(s): I10 - ESSENTIAL (PRIMARY) HYPERTENSION Assessment/Plan see problem list
[2017-05-02 14:47] VITALS: BP 127/52; PULSE 82; TEMP 97.7
== END 2017-05-02 16:44 | disposition home or self-care (01) | DRG 291 ==
LOC: JER 10:59 → JERBED 13:46 → J5S 19:42
PROVIDERS: ADMIT Family Medicine; ATTEND Family Medicine
PROC: 5A1D90Z Performance of Urinary Filtration, Continuous, Greater than 18 hours Per Day (ICD-10-PCS; principal; 2017-05-02)
DX: I13.2 Hypertensive heart and chronic kidney disease with heart failure and with stage 5 chronic kidney disease, or end stage renal disease (principal); N18.6 End stage renal disease; I50.9 Heart failure, unspecified; J44.9 Chronic obstructive pulmonary disease, unspecified; I27.20 Pulmonary hypertension, unspecified; E87.5 Hyperkalemia; I25.10 Atherosclerotic heart disease of native coronary artery without angina pectoris; E11.21 Type 2 diabetes mellitus with diabetic nephropathy; E87.70 Fluid overload, unspecified; Z98.61 Coronary angioplasty status; Z87.891 Personal history of nicotine dependence; Z86.73 Personal history of transient ischemic attack (TIA), and cerebral infarction without residual deficits; Z79.4 Long term (current) use of insulin
CPT/HCPCS: 36415; 71010-TC; 80048; 80053; 82550; 82565; 83735; 83880; 84100; 84484; 84520; 85025; 85027; 85610; 93005; 93010; 94640; 99283-25; J1644

== ENCOUNTER 2018-03-25 10:57 | Inpatient (IN) | payer OTHER, BC ==
[2018-03-25 11:08] VITALS: BMI 36.1
[2018-03-25] MEDS ORDERED: SODIUM CHLORIDE 1,000 ML IV SCH (11:15)
[2018-03-25] MEDS ORDERED: ONDANSETRON 4 MG/2 ML VIAL IVPUSH ONE (11:30)
[2018-03-25] MEDS ORDERED: ONDANSETRON 4 MG/2 ML VIAL ONE (11:36)
[2018-03-25] MEDS ORDERED: cloNIDine HCL 0.1 MG TABLET PO ONE (11:36)
[2018-03-25] MEDS ORDERED: FAMOTIDINE 20 MG/50 ML IVPB 20 MG/50 ML MG IVPB ONE ×2 (11:36)
--- NOTE | 2018-03-25 11:36 | PDOC ---
History of Present Illness - General Chief Complaint: Nausea/Vomiting Stated Complaint: NAUAEA, DIARRHEA Time Seen by Provider: 03/25/18 11:14 History Source: Patient Exam Limitations: No Limitations - History of Present Illness Initial Comments: 03/25/18 11:27 72 year old with history of DM, HTN, CHF, CKD (dialysis T,R,Sat) who presents with nausea, 3x NBNB vomiting and 3x diarrhea since this AM with generalized abdominal pain worse on R epigastric area. The patient was at dialysis but could not start treatment as she started vomiting. She was sent to the ED from [facility]. Pt denies chest pain, fever, shortness of breath. No recent travel, no sick contacts, no radiation of abdominal pain toward the back or into the chest. The patient takes carvedilol and hydralayzine for BP management on nondialysis days and takes ASA and plavix regularly. She takes clonopine .1mg for SBP > 190. PMHX: as in HPI Meds: see below and as in HPI Allergies: statins Tob: none Etoh: none Rec drugs: none PCP: none Past History - Past Medical History Allergies/Adverse Reactions: Allergies Allergy/AdvReac Type Severity Reaction Status Date / Time Holpygl-Gjl-Idm Reductase AdvReac Unknown Verified 04/30/17 11:01 Inhibitor Home Medications: Ambulatory Orders Carvedilol [Coreg -] 12.5 mg PO BID 04/02/17 Clopidogrel Bisulfate [Clopidogrel] 75 mg PO DAILY 04/02/17 Acetaminophen [Tylenol .Regular Strength -] 650 mg PO Q6H PRN #0 tablet Aspirin Coated [Ecotrin -] 81 mg PO DAILY tab 04/06/17 Ipratropium/Albuterol Sulfate [Combivent Respimat 20-100 Mcg] 4 gm IH QID #1 aer.w.adap 04/06/17 Cyanocobalamin [Vitamin B12 -] 500 mcg PO DAILY 04/30/17 Insulin (Novolog) [Novolog -] 10 units SQ BID 04/30/17 Insulin Aspart [Novolog] 15 unit SQ ACDIN 04/30/17 Isosorbide Mononitrate [Isosorbide Mononitrate ER] 60 mg PO DAILY 04/30/17 Vitamin B Comp W-C [Nephro-Katie -] 1 tablet PO DAILY 04/30/17 Furosemide [Lasix -] 80 mg PO DAILY #30 tablet 05/02/17 Hydralazine HCl 100 mg PO BID #30 tab 05/02/17 Insulin Glargine,Hum.rec.anlog [Lantus Solostar PEN -] 25 units SQ HS #1 each Cardiac Disorders: Yes (STENT) CVA: Yes (2014) COPD: No CHF: Yes Diabetes: Yes Dialysis: Yes (//SAT) HTN: Yes Hypercholesterolemia: Yes Liver Disease: Yes (LIVER CIRRHOSIS) - Surgical History Cardiac Surgery: Yes (STENT) - Suicide/Smoking/Psychosocial Hx Smoking History: Former smoker Have you smoked in the past 12 months: No If you are a former smoker, when did you quit?: 2014 Information on smoking cessation initiated: No Hx Alcohol Use: No Drug/Substance Use Hx: No Substance Use Type: None Hx Substance Use Treatment: No Review of Systems - Review of Systems Able to Perform ROS?: Yes Is the patient limited Hebrew proficient: No Constitutional: No: Chills, Diaphoresis, Fever HEENTM: No: Blurred Vision, Tinnitus Respiratory: No: Cough, Orthopnea, Shortness of Breath Cardiac (ROS): No: Chest Pain, Chest Tightness ABD/GI: Yes: Diarrhea, Nausea, Vomiting. No: Abdominal Distended : No: Burning, Dysuria, Hematuria, Incontinence Musculoskeletal: No: Back Pain Neurological: No: Headache, Numbness, Paresthesia, Tingling *Physical Exam - Vital Signs Last Vital Signs Temp Pulse Resp BP Pulse Ox 97.6 F 77 18 239/95 H 96 03/25/18 11:06 03/25/18 11:06 03/25/18 11:06 03/25/18 11:06 03/25/18 11:06 - Physical Exam Comments: 03/25/18 11:45 GENERAL: Awake, alert, and fully oriented, vomiting green bile at bedside. HEAD: No signs of trauma, normocephalic, atraumatic EYES: EOMI, sclera anicteric, conjunctiva clear ENT: Auricles normal inspection, hearing grossly normal, nares patent, oropharynx clear without exudates. Moist mucosa NECK: Normal ROM, supple LUNGS: No distress, speaks full sentences, clear to auscultation bilaterally HEART: Regular rate and rhythm, normal S1 and S2, no murmurs, rubs or gallops, peripheral pulses normal and equal bilaterally. ABDOMEN: Soft, nontender, normoactive bowel sounds. No guarding, no rebound. No masses EXTREMITIES : Normal inspection, Normal range of motion, no edema. No clubbing or cyanosis. NEUROLOGICAL: Cranial nerves II through XII grossly intact. Normal speech, no focal sensorimotor deficits SKIN: Warm, Dry, normal turgor, no rashes or lesions noted ED Treatment Course - LABORATORY CBC & Chemistry Diagram: 03/25/18 11:30 03/25/18 11:30 Medical Decision Making - Medical Decision Making 72 year old with history of DM, HTN, CHF, CKD (dialysis T,R,Sat) who presents with nausea, 3x NBNB vomiting and 3x diarrhea since this AM with generalized abdominal pain worse on R epigastric area. The patient was at dialysis but could not start treatment as she started vomiting. She was sent to the ED from [facility]. Pt denies chest pain, fever, shortness of breath. No recent travel, no sick contacts, no radiation of abdominal pain toward the back or into the chest. The patient takes carvedilol and hydralayzine for BP management on nondialysis days and takes ASA and plavix regularly. She takes clonopine .1mg for SBP > 190. DDX including but not limited to: dissection vs gastroenteritis vs coliits vs ACS vs electrolye abnormality W/U: - ekg, cardiac profile, cbc, cmp, lactic acid, BNP TX: - Zofran, Reglan - clonopine ED Course: 03/25/18 11:36 Repeat sBP: 246 Clonopine .1mg ordered as SBP >190. 03/25/18 12:32 Actively vomiting green bile at bedside. QTc at 507, will avoid redosing of Zofran 4 Reglan 10 ordered. CTA chest, abd, pelvis pending. 03/25/18 13:05 Repeat SBP: 250 Labetolol 20mg ordered. BNP: 52254. Patient takes lasix 80 at home. Will hold off lasix administration as likely BNP will resolve with scheduled dialysis. 03/25/18 14:13 CTA negative. 03/25/18 14:15 Repeat SBP: 192. Feels resolution of all symptoms. Complains of some mild abdominal pain. 10/23/18 14:17 Medicine contacted for admission. 03/25/18 14:18 *DC/Admit/Observation/Transfer Diagnosis at time of Disposition: Hypertensive urgency, ESRD (end stage renal disease) - Discharge Dispostion Disposition: HOME Condition at time of disposition: Stable Decision to Admit order: Yes - Referrals - Patient Instructions - Post Discharge Activity
[2018-03-25 11:41] LABS: BASO % 0.7 % (0-2.0); EOS % 0.2 % (0-4.5); HEMOGLOBIN 12.6 GM/dL (10.7-15.3); LYMPH % 14.9 % (8-40); MCH 27.9 pg (25.7-33.7); MEAN CELL VOLUME 92.8 fl (80-96); MEAN PLT VOLUME 9.4 fl (7.5-11.1); MONO % 2.8 % (3.8-10.2); NEUT % 81.4 % (42.8-82.8); PLATELET COUNT 266 K/MM3 (134-434); RBC 4.53 M/mm3 (3.60-5.2); RDW 16.4 % (11.6-15.6); WHITE BLOOD COUNT 10.8 K/mm3 (4.0-10.0)
[2018-03-25] MEDS ORDERED: cloNIDine HCL 0.1 MG TABLET ONE (11:55)
[2018-03-25 12:09] LABS: INR 0.92 (0.83-1.09); PROTHROMBIN TIME (PATIENT) 10.9 SEC (9.7-13.0)
[2018-03-25] MEDS ORDERED: METOCLOPRAMIDE HCL INJECTION 10 MG/2 ML VIAL IVPUSH ONE (12:21)
[2018-03-25] MEDS ORDERED: METOCLOPRAMIDE HCL INJECTION 10 MG/2 ML VIAL ONE (12:39)
--- NOTE | 2018-03-25 12:39 | PDOC ---
Attending Attestation - Resident Resident Name: Kathleen Hayden - ED Attending Attestation I have performed the following: I have examined & evaluated the patient, The case was reviewed & discussed with the resident, I agree w/resident's findings & plan - HPI HPI: 03/25/18 12:35 72-year-old female with multiple medical problems including hypertension, end- stage renal disease on dialysis, presents from dialysis with intractable vomiting and several episodes of diarrhea this morning. Positive associated upper abdominal pain, denies any chest pain or headache or difficulty breathing. No fevers or chills, no diet changes, no recent travel. - Physicial Exam PE: 03/25/18 12:37 Very elevated blood pressure (purposely skips her blood pressure medications on dialysis days), afebrile Alert, retching and ultimately vomiting green fluid Heart is regular, lungs are clear Abdomen is soft and nondistended, slight left upper quadrant tenderness to palpation without guarding or rebound, no palpable pulsatile masses for CVA tenderness Neurologically intact - Medical Decision Making 03/25/18 12:38 72-year-old female from dialysis with elevated blood pressure and vomiting/ diarrhea that began this morning. Differential is broad, question end organ injury from very elevated blood pressure, question gastritis/pancreatitis/ colitis, rule out vascular pathology. Labs, EKG Chest x-ray Blood pressure control Antiemetics, caution for prolonged QTC CT dissection protocol Will need dialysis 03/25/18 14:17 labs at baseline, Cr 8.8 with normal K, no leukocytosis 10.8. ct chest/abd/pelvis without acute pathology, including dissection or aneurysm. bp controlled after IV labetalol, sxs improved. will proceed with admit, needs HD as scheduled and s/p contrast. Heart Score/ECG Review #1 ECG reviewed & interpreted by me at: 11:26 General ECG Interpretation: Sinus Rhythm, Normal Rate (75), Normal Intervals ( prolonged qtc 506), No acute ischemic changes
[2018-03-25 12:53] LABS: ALBUMIN 3.5 g/dl (3.4-5.0); ALK PHOS 136 U/L (45-117); ANION GAP 13 MMOL/L (8-16); BILIRUBIN,TOTAL 0.3 mg/dL (0.2-1); BLOOD UREA NITROGEN 67 mg/dL (7-18); CALCIUM 9.1 mg/dL (8.5-10.1); CHLORIDE 110 mmol/L (98-107); CO2 19 mmol/L (21-32); GLUCOSE,RANDOM 136 mg/dL (74-106); LIPASE 162 U/L (73-393); N-TERMINAL BNP 26617.1 pg/ml (5-125); POTASSIUM 4.9 mmol/L (3.5-5.1); SGOT/AST 39 U/L (15-37); SGPT/ALT 19 U/L (13-61); SODIUM 142 mmol/L (136-145); TOT PROT 7.2 g/dl (6.4-8.2)
[2018-03-25] MEDS ORDERED: LABETALOL HCL 5 MG/1 ML (100MG/20 ML VIAL) IVPUSH ONE (13:04)
[2018-03-25 13:19] LABS: CREATININE 8.8 mg/dL (0.55-1.3)
[2018-03-25] MEDS ORDERED: LABETALOL HCL 5 MG/1 ML (200MG/40ML VIAL) IVPB ONE (13:58)
--- NOTE | 2018-03-25 16:34 | HP ---
CHIEF COMPLAINT: Nausea, vomiting, diarrhea PCP: Dr. Tamiko Bustamante HISTORY OF PRESENT ILLNESS: 72-year old female with a PMH significant for HTN, CAD s/p stenting, diastolic heart failure, CVA, COPD, ESRD on HD (,,Sat), and IDDM, who presented to the ED today with onset of nausea, vomiting, diarrhea and generalized abdominal pain since this morning. The patient went to dialysis but could not start treatment due to vomiting. Denies fever, sweats, chills. Denies chest pain, SOB , LORA, orthopnea, and lower extremity edema. No recent travel, no sick contacts. ER course was notable for: (1) BP 242/74 (2) BUN/Cr 67/8.8; HCO3 19 (3) QTc 507 (4) Labetolol IVP 20mg x 1; clonidine PO 0.1mg x 1; Zofran 4mg x 1; Pepcid 20mg IVPB x 1; Reglan IVP 10mg x 1 Recent Travel: No PAST MEDICAL HISTORY: Hypertension Coronary artery disease Diastolic heart failure Pulmonary hypertension CVA (2014) COPD ESRD on HD (,,Sat) Anemia IDDM Cirrhosis PAST SURGICAL HISTORY: Cardiac stenting (2015) Cataract removal Social History: Smokin pack years; quit 4 years ago Alcohol: no Drugs: no Family History: Allergies Amsadmp-Avy-Bkd Reductase Inhibitor Adverse Reaction (Unknown, Verified 11:01) HOME MEDICATIONS: Medication Instructions Recorded Carvedilol [Coreg -] 12.5 mg PO BID 04/02/17 Clopidogrel Bisulfate [Clopidogrel] 75 mg PO DAILY 04/02/17 Acetaminophen [Tylenol .Regular 650 mg PO Q6H PRN #0 tablet 04/06/17 Strength -] Aspirin Coated [Ecotrin -] 81 mg PO DAILY tab 04/06/17 Ipratropium/Albuterol Sulfate 4 gm IH QID #1 aer.w.adap 04/06/17 [Combivent Respimat 20-100 Mcg] Cyanocobalamin [Vitamin B12 -] 500 mcg PO DAILY 04/30/17 Insulin (Novolog) [Novolog -] 10 units SQ BID 04/30/17 Insulin Aspart [Novolog] 15 unit SQ ACDIN 04/30/17 Isosorbide Mononitrate [Isosorbide 60 mg PO DAILY 04/30/17 Mononitrate ER] Vitamin B Comp W-C [Nephro-Katie -] 1 tablet PO DAILY 04/30/17 Furosemide [Lasix -] 80 mg PO DAILY #30 tablet 05/02/17 Hydralazine HCl 100 mg PO BID #30 tab 05/02/17 Insulin Glargine,Hum.rec.anlog 25 units SQ HS #1 each 05/02/17 [Lantus Solostar PEN -] REVIEW OF SYSTEMS CONSTITUTIONAL: Absent: fever, chills, diaphoresis, generalized weakness, malaise, loss of appetite, weight change HEENT: Absent: rhinorrhea, nasal congestion, throat pain, throat swelling, difficulty swallowing, mouth swelling, ear pain, eye pain, visual changes CARDIOVASCULAR: Absent: chest pain, syncope, palpitations, irregular heart rate, lightheadedness , peripheral edema RESPIRATORY: Absent: cough, shortness of breath, dyspnea with exertion, orthopnea, wheezing, stridor, hemoptysis GASTROINTESTINAL: +nausea, vomiting, abdominal pain, diarrhea Absent: abdominal distension, constipation, melena, hematochezia GENITOURINARY: Absent: dysuria, frequency, urgency, hesitancy, hematuria, flank pain, genital pain MUSCULOSKELETAL: Absent: myalgia, arthralgia, joint swelling, back pain, neck pain SKIN: Absent: rash, itching, pallor HEMATOLOGIC/IMMUNOLOGIC: Absent: easy bleeding, easy bruising, lymphadenopathy, frequent infections ENDOCRINE: Absent: unexplained weight gain, unexplained weight loss, heat intolerance, cold intolerance NEUROLOGIC: Absent: headache, focal weakness or paresthesias, dizziness, unsteady gait, seizure, mental status changes, bladder or bowel incontinence PSYCHIATRIC: Absent: anxiety, depression, suicidal or homicidal ideation, hallucinations. PHYSICAL EXAMINATION Vital Signs - 24 hr 03/25/18 03/25/18 03/25/18 11:06 11:42 12:50 Temperature 97.6 F Pulse Rate 77 Pulse Rate [ 76 83 Apical] Respiratory 18 23 H 27 H Rate Blood Pressure 239/95 H Blood Pressure 242/74 H 249/82 H [Right Arm] O2 Sat by Pulse 96 96 94 L Oximetry (%) 03/25/18 03/25/18 13:56 14:24 Temperature 98.0 F Pulse Rate Pulse Rate [ 87 84 Apical] Respiratory 20 18 Rate Blood Pressure Blood Pressure 215/81 H 195/79 H [Right Arm] O2 Sat by Pulse 97 95 Oximetry (%) GENERAL: Awake, alert, and fully oriented, in no acute distress. HEAD: Normal with no signs of trauma. EYES: Pupils equal, round and reactive to light, extraocular movements intact, sclera anicteric, conjunctiva clear. No lid lag. EARS, NOSE, THROAT: Ears normal, nares patent, oropharynx clear without exudates. Moist mucous membranes. NECK: Normal range of motion, supple without lymphadenopathy, JVD, or masses. LUNGS: Breath sounds equal, clear to auscultation bilaterally. No wheezes, and no crackles. No accessory muscle use. HEART: Regular rate and rhythm, normal S1 and S2 without murmur, rub or gallop. ABDOMEN: Soft, nontender, not distended, normoactive bowel sounds, no guarding, no rebound, no masses. No hepatomegaly or splenomegaly. MUSCULOSKELETAL: Normal range of motion at all joints. No bony deformities or tenderness. No CVA tenderness. UPPER EXTREMITIES: 2+ pulses, warm, well-perfused. No cyanosis. No clubbing. No peripheral edema. LOWER EXTREMITIES: 2+ pulses, warm, well-perfused. No calf tenderness. No peripheral edema. NEUROLOGICAL: Cranial nerves II-XII intact. Normal speech. Normal gait. PSYCHIATRIC: Cooperative. Good eye contact. Appropriate mood and affect. SKIN: Warm, dry, normal turgor, no rashes or lesions noted, normal capillary refill. Laboratory Results - last 24 hr 03/25/18 03/25/18 03/25/18 11:30 11:30 11:30 WBC 10.8 H RBC 4.53 Hgb 12.6 Hct 42.0 MCV 92.8 MCH 27.9 MCHC 30.0 L RDW 16.4 H Plt Count 266 D MPV 9.4 Absolute Neuts (auto) 8.8 H Neutrophils % 81.4 D Lymphocytes % 14.9 D Monocytes % 2.8 L Eosinophils % 0.2 D Basophils % 0.7 Nucleated RBC % 0 PT with INR 10.90 INR 0.92 PTT (Actin FS) 32.0 Sodium 142 Potassium 4.9 Chloride 110 H Carbon Dioxide 19 L Anion Gap 13 BUN 67 H Creatinine 8.8 H* Creat Clearance w eGFR 4.42 Random Glucose 136 H Lactic Acid Calcium 9.1 Total Bilirubin 0.3 AST 39 H ALT 19 Alkaline Phosphatase 136 H Creatine Kinase 88 Troponin I 0.04 B-Natriuretic Peptide 56254.1 H Total Protein 7.2 Albumin 3.5 Lipase 162 03/25/18 11:30 WBC RBC Hgb Hct MCV MCH MCHC RDW Plt Count MPV Absolute Neuts (auto) Neutrophils % Lymphocytes % Monocytes % Eosinophils % Basophils % Nucleated RBC % PT with INR INR PTT (Actin FS) Sodium Potassium Chloride Carbon Dioxide Anion Gap BUN Creatinine Creat Clearance w eGFR Random Glucose Lactic Acid 0.8 Calcium Total Bilirubin AST ALT Alkaline Phosphatase Creatine Kinase Troponin I B-Natriuretic Peptide Total Protein Albumin Lipase ASSESSMENT/PLAN 72-year old female with a PMH significant for HTN, CAD s/p stenting, diastolic heart failure, CVA, COPD, ESRD on HD (T,Th,Sat), and IDDM, admitted for hypertensive urgency and ESRD in need of emergent dialysis. Hypertensive urgency --BP on admission 242/74 --continue hydralazine, clonidine; start losartan; stop home carvedilol and start labetolol ESRD on HD (T,,Sat) --HD today --renal following Nausea, vomiting, diarrhea --afebrile, no leukocytosis --CTAP negative for acute process --may be gastroenteritis +/- severe HTN as symptoms have improved since BP has come down Prolonged QTc interval --QTc 507 --avoid QT prolonging meds --Tigan TID for nausea Coronary artery disease --continue ASA, Plavix, beta jael, isosorbide --not on statin theapy Diastolic heart failure Pulmonary hypertension --04/03/17 Echo: normal LV, EF 66%; normal RV; reduced diastolic compliance; elevated pulmonary pressures RVSP 50 - 60 mmHg --fluid managment via HD --on home lasix PO 80mg daily, hold for now --continue losartan IDDM --Levemir --Novolog sliding scale coverage FEN Fluids: PO intake adequate; 1.2L fluid restriction Electrolytes: replete as indicated Nutrition: diabetic, low sodiumLow salt renal diet DVT prophylaxis: subq heparin Dispo: continues to require inpatient care. Full code. Visit type - Emergency Visit Emergency Visit: Yes ED Registration Date: 03/25/18 Care time: The patient presented to the Emergency Department on the above date and was hospitalized for further evaluation of their emergent condition. - New Patient This patient is new to me today: Yes Date on this admission: 03/26/18 - Critical Care Critical Care patient: No
--- NOTE | 2018-03-25 16:37 | CONSULT ---
Consult - text type - Consultation Consultation Note: Renal Consult for ESRD on HD This is a 72 year old AA woman with hx of ESRD on HD, Hypertension, DM, CHF who presented with complaints of Abd pain with N/V and found to have hypertensive urgency/emergency. Pt reports feeling a little better now. Was given reglan, pepcid, Labetolol and Clonidine in the ER. Denies any CP, SOB, KWAN, blurry vision. + diarrhea at home. No flank pain, Makes a minimal amount of urine. PMHx: as above Allergies: NKDA Family Hx: NC Social Hx: No T/A/D ROS: as per HPI Home Medications Medication Instructions Recorded Carvedilol [Coreg -] 12.5 mg PO BID 04/02/17 Clopidogrel Bisulfate [Clopidogrel] 75 mg PO DAILY 04/02/17 Acetaminophen [Tylenol .Regular 650 mg PO Q6H PRN #0 tablet 04/06/17 Strength -] Aspirin Coated [Ecotrin -] 81 mg PO DAILY tab 04/06/17 Ipratropium/Albuterol Sulfate 4 gm IH QID #1 aer.w.adap 04/06/17 [Combivent Respimat 20-100 Mcg] Cyanocobalamin [Vitamin B12 -] 500 mcg PO DAILY 04/30/17 Insulin (Novolog) [Novolog -] 10 units SQ BID 04/30/17 Insulin Aspart [Novolog] 15 unit SQ ACDIN 04/30/17 Isosorbide Mononitrate [Isosorbide 60 mg PO DAILY 04/30/17 Mononitrate ER] Vitamin B Comp W-C [Nephro-Katie -] 1 tablet PO DAILY 04/30/17 Furosemide [Lasix -] 80 mg PO DAILY #30 tablet 05/02/17 Hydralazine HCl 100 mg PO BID #30 tab 05/02/17 Insulin Glargine,Hum.rec.anlog 25 units SQ HS #1 each 05/02/17 [Lantus Solostar PEN -] Vital Signs Temperature 98.0 F 03/25/18 13:56 Pulse Rate 84 03/25/18 14:24 Respiratory Rate 18 03/25/18 14:24 Blood Pressure 195/79 H 03/25/18 14:24 O2 Sat by Pulse Oximetry (%) 95 03/25/18 14:24 Intake & Output 03/22/18 03/23/18 03/24/18 03/25/18 23:59 23:59 23:59 23:59 Weight 83.915 kg NAD awake and alert RRR, no M/R CTA, no rales or wheezse soft NT/ND, obese Abd No LE edema CBC, BMP 03/25/18 11:30 03/25/18 11:30 72 year old AA woman with hx of ESRD on HD, Hypertension, DM, CHF who presented with complaints of Abd pain with N/V and found to have hypertensive urgency/ emergency #N/V w/o Abd pathology on CT #Hypertensive urgency #ESRD on HD #Metabolic acidosis #DM No pathology on CT, manage symptoms of N/V ? gastroeneteritis unclear if BP is high due to N/V or N/V occured due to high BP Resume home Meds: Hydralazine 100mg BID, Clonidine 0.1mg BID convert Coreg to Labetalol 200mg BID for now Start Losartan 50mg Daily to be given now will plan for HD today with aggressive UF Trend BP Low salt renal diet 1.2L fluid restriction expect serum bicarb to improve s/p dialysis Thank you Will follow Rory Major DO
[2018-03-25] MEDS ORDERED: SODIUM CHLORIDE 250 ML IV PRN (16:45)
[2018-03-25] MEDS ORDERED: hydrALAZINE HCL 25 MG TABLET (FP) ONE (16:53)
[2018-03-25] MEDS: hydrALAZINE HCL 50 MG TABLET (FP) PO SCH ×2 (16:54→23:51)
[2018-03-25] MEDS: ISOSORBIDE MONONITRATE 60 MG TAB.SR.24H (FP) PO SCH (17:11)
[2018-03-25] MEDS: LOSARTAN POTASSIUM 50 MG TABLET (FP) PO SCH (17:11)
[2018-03-25] MEDS ORDERED: TRIMETHOBENZAMIDE HCL 300 MG CAPSULE PO PRN (17:18)
[2018-03-25] MEDS ORDERED: ALBUTEROL SO4 2.5/IPRATROPIUM 0.5 INH SOL 3 ML VIAL.NEB. NEB SCH (20:00)
[2018-03-25] MEDS ORDERED: INSULIN (LEVEMIR) 100 UNITS/ML UNITS SQ SCH (22:00)
[2018-03-25] MEDS ORDERED: hydrALAZINE HCL 50 MG TABLET (FP) PO SCH (22:00)
[2018-03-25] MEDS: LABETALOL HCL 200 MG TABLET (FP) PO SCH (23:51)
[2018-03-25] MEDS: HEPARIN NA (PORCINE) 5,000 UNITS/ML 1ML VIAL SQ SCH (23:51)
[2018-03-25] MEDS: INSULIN SLIDING SCALE (NOVOLOG) 1 VIAL SQ SCH (23:52)
[2018-03-26] MEDS: cloNIDine HCL 0.1 MG TABLET PO SCH ×2 (01:30→10:40)
[2018-03-26] MEDS: HEPARIN NA (PORCINE) 5,000 UNITS/ML 1ML VIAL SQ SCH (06:11)
[2018-03-26] MEDS: INSULIN SLIDING SCALE (NOVOLOG) 1 VIAL SQ SCH ×2 (06:12→11:55)
[2018-03-26] MEDS ORDERED: DEXTROSE 50%-WATER - 25 GM/50 ML VIAL ONE (06:48)
[2018-03-26] MEDS ORDERED: DEXTROSE 50%-WATER 25 GM/50 ML DISP.SYRIN IVPUSH ONE (06:49)
[2018-03-26 07:59] LABS: BASO % 0.7 % (0-2.0); EOS % 0.4 % (0-4.5); HEMATOCRIT 37.9 % (32.4-45.2); HEMOGLOBIN 11.5 GM/dL (10.7-15.3); LYMPH % 22.9 % (8-40); MCH 27.5 pg (25.7-33.7); MCHC 30.3 g/dl (32.0-36.0); MEAN CELL VOLUME 90.5 fl (80-96); MEAN PLT VOLUME 9.6 fl (7.5-11.1); MONO % 7.2 % (3.8-10.2); NEUT % 68.8 % (42.8-82.8); PLATELET COUNT 235 K/MM3 (134-434); RBC 4.19 M/mm3 (3.60-5.2); RDW 16.2 % (11.6-15.6); WHITE BLOOD COUNT 11.1 K/mm3 (4.0-10.0)
[2018-03-26 08:32] LABS: ALBUMIN 3.4 g/dl (3.4-5.0); ALK PHOS 129 U/L (45-117); ANION GAP 10 MMOL/L (8-16); BILIRUBIN,TOTAL 0.3 mg/dL (0.2-1); BLOOD UREA NITROGEN 31 mg/dL (7-18); CALCIUM 8.4 mg/dL (8.5-10.1); CHLORIDE 102 mmol/L (98-107); CO2 28 mmol/L (21-32); CREATININE 5.6 mg/dL (0.55-1.3); MAGNESIUM 2.2 mg/dL (1.8-2.4); PHOSPHOROUS 4.5 mg/dL (2.5-4.9); POTASSIUM 3.1 mmol/L (3.5-5.1); SGOT/AST 17 U/L (15-37); SGPT/ALT 16 U/L (13-61); SODIUM 140 mmol/L (136-145); TOT PROT 6.8 g/dl (6.4-8.2)
[2018-03-26 08:43] LABS: GLUCOSE,RANDOM 39 mg/dL (74-106)
[2018-03-26] MEDS ORDERED: INSULIN (LEVEMIR) 100 UNITS/ML UNITS SQ SCH (08:53)
[2018-03-26] MEDS ORDERED: ISOSORBIDE MONONITRATE 60 MG TAB.SR.24H (FP) PO SCH (10:00)
[2018-03-26] MEDS ORDERED: FUROSEMIDE 40 MG TABLET (FP) PO SCH (10:00)
[2018-03-26] MEDS ORDERED: ASPIRIN COATED 81 MG TABLET.EC PO SCH (10:00)
[2018-03-26] MEDS ORDERED: CLOPIDOGREL BISULFATE 75 MG TABLET (FP) PO SCH (10:00)
--- NOTE | 2018-03-26 10:00 | EKG ---
Test Reason : Blood Pressure : / mmHG Vent. Rate : 075 BPM Atrial Rate : 075 BPM P-R Int : 144 ms QRS Dur : 086 ms QT Int : 454 ms P-R-T Axes : 060 016 064 degrees QTc Int : 506 ms NORMAL SINUS RHYTHM POSSIBLE LEFT ATRIAL ENLARGEMENT PROLONGED QT ABNORMAL ECG WHEN COMPARED WITH ECG OF 30-APR-2017 11:09, NO SIGNIFICANT CHANGE WAS FOUND Confirmed by GULSHAN MELENDREZ, TROY ([id number]) on 03/26/2018 9:59:58 AM Referred By: Confirmed By:TROY GAFFNEY MD
[2018-03-26] MEDS: LOSARTAN POTASSIUM 50 MG TABLET (FP) PO SCH (10:40)
[2018-03-26] MEDS: ISOSORBIDE MONONITRATE 60 MG TAB.SR.24H (FP) PO SCH (10:40)
[2018-03-26] MEDS: hydrALAZINE HCL 50 MG TABLET (FP) PO SCH (10:41)
[2018-03-26] MEDS: LABETALOL HCL 200 MG TABLET (FP) PO SCH (10:41)
[2018-03-26 12:24] VITALS: BP 120/54; PULSE 74; TEMP 98.5
--- NOTE | 2018-03-26 12:33 | DS ---
Physical Exam: SUBJECTIVE: Patient seen and examined OBJECTIVE: Vital Signs Period Temp Pulse Resp BP Sys/Moser Pulse Ox Last 24 Hr 97.9 F-99.4 F 74-87 16-27 120-249/53-84 94-97 PHYSICAL EXAM GENERAL: The patient is awake, alert, and fully oriented, in no acute distress. HEAD: Normal with no signs of trauma. EYES: PERRL, extraocular movements intact, sclera anicteric, conjunctiva clear. ENT: Ears normal, nares patent, oropharynx clear without exudates, moist mucous membranes. NECK: Trachea midline, full range of motion, supple. LUNGS: Breath sounds equal, clear to auscultation bilaterally, no wheezes, no crackles, no accessory muscle use. HEART: Regular rate and rhythm, S1, S2 without murmur, rub or gallop. ABDOMEN: Soft, nontender, nondistended, normoactive bowel sounds, no guarding, no rebound, no hepatosplenomegaly, no masses. EXTREMITIES: 2+ pulses, warm, well-perfused, no edema. NEUROLOGICAL: Cranial nerves II through XII grossly intact. Normal speech, gait not observed. PSYCH: Normal mood, normal affect. SKIN: Warm, dry, normal turgor, no rashes or lesions noted. LABS Laboratory Results - last 24 hr 03/25/18 03/25/18 03/26/18 11:30 23:50 06:07 WBC RBC Hgb Hct MCV MCH MCHC RDW Plt Count MPV Absolute Neuts (auto) Neutrophils % Lymphocytes % Monocytes % Eosinophils % Basophils % Nucleated RBC % Sodium 142 Potassium 4.9 Chloride 110 H Carbon Dioxide 19 L Anion Gap 13 BUN 67 H Creatinine 8.8 H* Creat Clearance w eGFR 4.42 POC Glucometer 199 47 Random Glucose 136 H Calcium 9.1 Phosphorus Magnesium Total Bilirubin 0.3 AST 39 H ALT 19 Alkaline Phosphatase 136 H Creatine Kinase 88 Troponin I 0.04 B-Natriuretic Peptide 38615.1 H Total Protein 7.2 Albumin 3.5 Lipase 162 03/26/18 03/26/18 03/26/18 06:46 06:50 06:50 WBC 11.1 H RBC 4.19 Hgb 11.5 Hct 37.9 MCV 90.5 MCH 27.5 MCHC 30.3 L RDW 16.2 H Plt Count 235 MPV 9.6 Absolute Neuts (auto) 7.6 Neutrophils % 68.8 Lymphocytes % 22.9 D Monocytes % 7.2 D Eosinophils % 0.4 D Basophils % 0.7 Nucleated RBC % 0 Sodium 140 Potassium 3.1 L Chloride 102 Carbon Dioxide 28 Anion Gap 10 BUN 31 H Creatinine 5.6 H Creat Clearance w eGFR 7.44 POC Glucometer 48 Random Glucose 39 L* Calcium 8.4 L Phosphorus 4.5 Magnesium 2.2 Total Bilirubin 0.3 AST 17 ALT 16 Alkaline Phosphatase 129 H Creatine Kinase Troponin I B-Natriuretic Peptide Total Protein 6.8 Albumin 3.4 Lipase 03/26/18 03/26/18 03/26/18 07:35 10:13 11:22 WBC RBC Hgb Hct MCV MCH MCHC RDW Plt Count MPV Absolute Neuts (auto) Neutrophils % Lymphocytes % Monocytes % Eosinophils % Basophils % Nucleated RBC % Sodium Potassium Chloride Carbon Dioxide Anion Gap BUN Creatinine Creat Clearance w eGFR POC Glucometer 183 243 249 Random Glucose Calcium Phosphorus Magnesium Total Bilirubin AST ALT Alkaline Phosphatase Creatine Kinase Troponin I B-Natriuretic Peptide Total Protein Albumin Lipase 03/26/18 11:43 WBC RBC Hgb Hct MCV MCH MCHC RDW Plt Count MPV Absolute Neuts (auto) Neutrophils % Lymphocytes % Monocytes % Eosinophils % Basophils % Nucleated RBC % Sodium Potassium Chloride Carbon Dioxide Anion Gap BUN Creatinine Creat Clearance w eGFR POC Glucometer 247 Random Glucose Calcium Phosphorus Magnesium Total Bilirubin AST ALT Alkaline Phosphatase Creatine Kinase Troponin I B-Natriuretic Peptide Total Protein Albumin Lipase HOSPITAL COURSE: Date of Admission:03/25/18 Date of Discharge: 03/26/18 Minutes to complete discharge: 35 Discharge Summary Reason For Visit: HYPERTENSIVE URGENCY,ESRD Current Active Problems ESRD (end stage renal disease) (Acute) Hypertensive urgency (Acute) Condition: Stable - Instructions - Home Medications Comprehensive Discharge Medication List: Ambulatory Orders Carvedilol [Coreg -] 12.5 mg PO BID 04/02/17 Clopidogrel Bisulfate [Clopidogrel] 75 mg PO DAILY 04/02/17 Acetaminophen [Tylenol .Regular Strength -] 650 mg PO Q6H PRN #0 tablet Aspirin Coated [Ecotrin -] 81 mg PO DAILY tab 04/06/17 Ipratropium/Albuterol Sulfate [Combivent Respimat 20-100 Mcg] 4 gm IH QID #1 aer.w.adap 04/06/17 Cyanocobalamin [Vitamin B12 -] 500 mcg PO DAILY 04/30/17 Insulin (Novolog) [Novolog -] 10 units SQ BID 04/30/17 Insulin Aspart [Novolog] 15 unit SQ ACDIN 04/30/17 Isosorbide Mononitrate [Isosorbide Mononitrate ER] 60 mg PO DAILY 04/30/17 Vitamin B Comp W-C [Nephro-Katie -] 1 tablet PO DAILY 04/30/17 Furosemide [Lasix -] 80 mg PO DAILY #30 tablet 05/02/17 Hydralazine HCl 100 mg PO BID #30 tab 05/02/17 Insulin Glargine,Hum.rec.anlog [Lantus Solostar PEN -] 25 units SQ HS #1 each
[2018-03-28 06:06] LABS: HBSAG SCREEN Negative (Negative); HEP A AB, IGM Negative (Negative); HEP B CORE AB, TOT Negative (Negative)
== END 2018-03-26 14:22 | disposition home or self-care (01) | DRG 304 ==
LOC: JER 10:57 → JERBED 16:04 → J6S 22:47
PROVIDERS: ADMIT Internal Medicine; ATTEND Nurse Practitioner Acute Care
PROC: 5A1D70Z Performance of Urinary Filtration, Intermittent, Less than 6 Hours Per Day (ICD-10-PCS; principal; 2018-03-25)
DX: I16.0 Hypertensive urgency (principal); N18.6 End stage renal disease; E87.2 Acidosis; I50.30 Unspecified diastolic (congestive) heart failure; E78.5 Hyperlipidemia, unspecified; K74.60 Unspecified cirrhosis of liver; J44.9 Chronic obstructive pulmonary disease, unspecified; I25.10 Atherosclerotic heart disease of native coronary artery without angina pectoris; I27.20 Pulmonary hypertension, unspecified; D64.9 Anemia, unspecified; I45.81 Long QT syndrome; R11.2 Nausea with vomiting, unspecified; R19.7 Diarrhea, unspecified; I13.2 Hypertensive heart and chronic kidney disease with heart failure and with stage 5 chronic kidney disease, or end stage renal disease; E11.22 Type 2 diabetes mellitus with diabetic chronic kidney disease; Z99.2 Dependence on renal dialysis; Z87.891 Personal history of nicotine dependence; Z86.73 Personal history of transient ischemic attack (TIA), and cerebral infarction without residual deficits; Z79.4 Long term (current) use of insulin; Z95.5 Presence of coronary angioplasty implant and graft
CPT/HCPCS: 36415; 71275-TC; 74174-TC; 80053; 82550; 82962; 83605; 83690; 83735; 83880; 84100; 84484; 85025; 85610; 85730; 86704; 86706; 86708; 86803; 87340; 93005; 93010; 99284-25; J0735; J1644

== ENCOUNTER 2019-05-11 08:36 | Inpatient (IN) | payer OTHER, BC ==
--- NOTE | 2019-05-11 08:47 | PDOC ---
History of Present Illness - General Chief Complaint: Congestive Heart Failure Stated Complaint: SOB Time Seen by Provider: 05/11/19 08:40 History Source: Patient Exam Limitations: No Limitations - History of Present Illness Initial Comments: Danyell Crabtree is a 73 yo F a w a hx of HTN, CAD s/p stenting, diastolic heart failure, Pulmonary HTN, CVA, COPD, ESRD on HD (T,Th,Sat), anemia, cirrhosis and IDDM who presents to the [facility] er BIBEMS from the dialysis center because she has been extremely short of breath, desaturating into the 80's, had labile blood pressures, and was not able to receive dialysis this morning because of these issues. EMS states they gave the patient 6 nitro's for symptomatic relief before she arrived in the ER. On arrival she was on the CPAP machine and satting in the low 90's per EMS. Patient endorses significant SOB, so she was immediately transitioned over to a Bi-Pap machine upon arrival to the ER. The patient states that she was feeling well yesterday before all her symptoms began this morning. She thinks the fact that she ate salt and home fries potatoes is what set off her SOB episode. Patient states she has been experiencing right sided chest discomfort associated with purulent green sputum production for the past 3 days. Denies nausea, vomiting, blurry vision, headache, neck pain, back pain, abdominal pain, leg swelling PCP: At [facility] Renal: Tamiko Bustamante PSH: Cardiac stenting, cataract removal, fistula Social Hx: 30 pack year smoker, quit 4 years ago. Denies current toxic habits Allergies: Statins Past History - Past Medical History Allergies/Adverse Reactions: Allergies Allergy/AdvReac Type Severity Reaction Status Date / Time Vbgmepm-Lqz-Eee Reductase AdvReac Unknown Verified 04/30/17 11:01 Inhibitor Home Medications: Ambulatory Orders Clopidogrel Bisulfate [Clopidogrel] 75 mg PO DAILY 04/02/17 Aspirin Coated [Ecotrin -] 81 mg PO DAILY tab 04/06/17 Insulin (Novolog) [Novolog -] 5 units SQ AC 04/30/17 Diltiazem HCl [Diltiazem ER] 120 mg PO DAILY 05/11/19 Famotidine 20 mg PO BID 05/11/19 Insulin Glargine,Hum.rec.anlog [Lantus Solostar PEN -] 30 units SQ HS 05/11/19 Ranolazine [Ranolazine ER] 500 mg PO BID 05/11/19 Cardiac Disorders: Yes (STENT) CVA: Yes (2014) COPD: No CHF: Yes Diabetes: Yes Dialysis: Yes (//SAT) HTN: Yes Hypercholesterolemia: Yes Liver Disease: Yes (LIVER CIRRHOSIS) - Surgical History Cardiac Surgery: Yes (STENT) - Psycho Social/Smoking Cessation Hx Smoking History: Former smoker Have you smoked in the past 12 months: No If you are a former smoker, when did you quit?: 2014 Hx Alcohol Use: No Drug/Substance Use Hx: No Substance Use Type: None Hx Substance Use Treatment: No Review of Systems - Review of Systems Able to Perform ROS?: Yes Comments:: CONSTITUTIONAL: Present: Fatigue Absent: fever, no chills EYES: Absent: visual changes ENT: Absent: ear pain, no sore throat CARDIOVASCULAR: Absent: chest pain, no palpitations RESPIRATORY: Present: Cough, SOB GI: Absent: abdominal pain, no nausea, no vomiting, no constipation, no diarrhea GENITOURINARY: Absent: dysuria, no frequency, no hematuria MUSKULOSKELETAL: Absent: back pain, no arthralgia, no myalgia SKIN: Absent: rash NEURO: Absent: headache *Physical Exam - Physical Exam GENERAL: Wearing a Bipap, sitting up erect. Obese. Well-nourished. HEENT: Normocephalic, atraumatic. PERRL, EOM intact. CARDIOVASCULAR: Normal S1, S2. Tachycardic rate and regular rhythm. PULMONARY: Clear evidence of respiratory distress. right sided crackles. No wheezing or rhonchi. ABDOMEN: Soft, non-distended, non-tender. EXTREMITIES: Normal ROM in all four extremities. No gross deformities. SKIN: Warm, dry. No rash NEUROLOGICAL: No focal neurological deficits. ED Treatment Course - LABORATORY CBC & Chemistry Diagram: 05/11/19 09:15 05/11/19 09:15 Medical Decision Making - Medical Decision Making Danyell Crabtree is a 73 yo F a w a hx of HTN, CAD s/p stenting, diastolic heart failure, Pulmonary HTN, CVA, COPD, ESRD on HD (,,Sat), anemia, cirrhosis and IDDM who presents to the [facility] er BIBEMS from the dialysis center because she has been extremely short of breath, desaturating into the 80's, had labile blood pressures, and was not able to receive dialysis this morning because of these issues. EMS states they gave the patient 6 nitro's for symptomatic relief before she arrived in the ER. On arrival she was on the CPAP machine and satting in the low 90's per EMS. Patient endorses significant SOB, so she was immediately transitioned over to a Bi-Pap machine upon arrival to the ER. The patient states that she was feeling well yesterday before all her symptoms began this morning. She thinks the fact that she ate salt and home fries potatoes is what set off her SOB episode. Patient states she has been experiencing right sided chest discomfort associated with purulent green sputum production for the past 3 days. Denies chest pain, nausea, vomiting, blurry vision, headache, neck pain, back pain, abdominal pain, leg swelling Vital Signs Temp Pulse Resp BP Pulse Ox 98.1 F 84 18 150/92 94 L 05/11/19 12:35 05/11/19 17:01 05/11/19 17:01 05/11/19 17:01 05/11/19 12:00 DDx IBNLT: Heart Failure vs COPD, ACS/ND, arrhythmia, electrolyte/metabolic disturbance, anemia, PNA, pneumothorax Plan: Labs, EKG, CXR, Bipap, re-assess, likely admission for SOB EKG: Prolonged QT unchanged since prior EKG. No peaked T-waves. NS rhythm. CXR: Right lower lobe increased markings consistent with PNA Labs: CBC,CMP WBC 13.5 K/mm3 (4.0-10.0) H 05/11/19 09:15 RBC 5.03 M/mm3 (3.60-5.2) 05/11/19 09:15 Hgb 13.7 GM/dL (10.7-15.3) 05/11/19 09:15 Hct 45.4 % (32.4-45.2) H D 05/11/19 09:15 MCV 90.3 fl (80-96) 05/11/19 09:15 MCH 27.3 pg (25.7-33.7) 05/11/19 09:15 MCHC 30.2 g/dl (32.0-36.0) L 05/11/19 09:15 RDW 18.4 % (11.6-15.6) H 05/11/19 09:15 Plt Count 259 K/MM3 (134-434) 05/11/19 09:15 MPV 10.1 fl (7.5-11.1) 05/11/19 09:15 Absolute Neuts (auto) 12.0 K/mm3 (1.5-8.0) H 05/11/19 09:15 Neutrophils % 89.6 % (42.8-82.8) H D 05/11/19 09:15 Lymphocytes % 5.8 % (8-40) L D 05/11/19 09:15 Monocytes % 3.7 % (3.8-10.2) L 05/11/19 09:15 Eosinophils % 0.4 % (0-4.5) 05/11/19 09:15 Basophils % 0.5 % (0-2.0) 05/11/19 09:15 Nucleated RBC % 0 % (0-0) 05/11/19 09:15 Sodium 146 mmol/L (136-145) H 05/11/19 09:15 Potassium 7.1 mmol/L (3.5-5.1) H* 05/11/19 09:15 Chloride 113 mmol/L (98-107) H 05/11/19 09:15 Carbon Dioxide 29 mmol/L (21-32) 05/11/19 09:15 Anion Gap 4 MMOL/L (8-16) L 05/11/19 09:15 BUN 32.1 mg/dL (7-18) H 05/11/19 09:15 Creatinine 6.5 mg/dL (0.55-1.3) H 05/11/19 09:15 Est GFR (CKD-EPI)AfAm 6.69 05/11/19 09:15 Est GFR (CKD-EPI)NonAf 5.77 05/11/19 09:15 Random Glucose 179 mg/dL (74-106) H 05/11/19 09:15 Lactic Acid 1.2 mmol/L (0.4-2.0) 05/11/19 11:40 Calcium 8.8 mg/dL (8.5-10.1) 05/11/19 09:15 Magnesium 2.5 mg/dL (1.8-2.4) H 05/11/19 09:15 Total Bilirubin 0.4 mg/dL (0.2-1) 05/11/19 09:15 AST 23 U/L (15-37) 05/11/19 09:15 ALT 18 U/L (13-61) 05/11/19 09:15 Alkaline Phosphatase 314 U/L (45-117) H 05/11/19 09:15 Creatine Kinase 72 U/L (26-192) 05/11/19 09:15 Troponin I 0.09 ng/ml (0.00-0.05) H 05/11/19 09:15 B-Natriuretic Peptide > 53059.0 pg/ml (5-125) H 05/11/19 09:15 Total Protein 6.8 g/dl (6.4-8.2) 05/11/19 09:15 Albumin 3.3 g/dl (3.4-5.0) L 05/11/19 09:15 Re-assessment: This clinical situation seems most consistent with a right sided PNA - Starting Abx with Vanc/Zosyn in ED Disposition: Admit for respiratory distress and PNA - Patient needs to be dialyzed Discharge - Discharge Information Problems reviewed: Yes Clinical Impression/Diagnosis: Respiratory distress, ESRD (end stage renal disease) on dialysis, Pulmonary HTN , Troponin I above reference range, Shortness of breath PNA (pneumonia) Qualifiers: Pneumonia type: due to unspecified organism Laterality: right Lung location: lower lobe of lung Qualified Code(s): J18.9 - Pneumonia, unspecified organism Condition: Stable - Admission Yes - Follow up/Referral - Patient Discharge Instructions - Post Discharge Activity
--- NOTE | 2019-05-11 08:52 | PDOC ---
Attending Attestation - Resident Resident Name: Ezekiel Sherman - ED Attending Attestation I have performed the following: I have examined & evaluated the patient, The case was reviewed & discussed with the resident, I agree w/resident's findings & plan, Exceptions are as noted - HPI HPI: 05/11/19 08:46 73y F hx of htn, hl, dm, cad sp pci, cva on plavix, pulm htn, ESRD (T,Th,Sa), afib, autoimmune hepatitis, CHF, anemia persents wih complaint of sob/rasmussen since this morning. Pt feels like she is 'congested in her lungs'. Pt noted to be hypetensive to 194 systolic at dialysis who clled EMS, was noted to be hypoxic to 88 wth rales through her bl lung martinez, she was given ntg x6 and CPAP with improvement of her bp and respiratry status. Patient does endorse mild right- sided chest pain for the last 3 days, increasing purulent cough pt denies any cp, fever/chils, lightheadedness, n/v, abd pain, back pain. exam: general: no acute disterss on Pulm: deminished breath sounds, on CPAP, no respiratoy distress ext: trace edema, neg homans, no calf tendernes, fistula on left forearm with thrill ddx- chf, volume overload, cad, afib will obtain labs, cxr, trop, ekg, cxr pts bp stable, but will monitor in light of NTG given in the field 05/11/19 10:05 The patient's chest x-rays noted for a mild right basilar infiltrate as patient did have preceding symptoms prior to today suggestive of pneumonia we will treat for HCAP Will admit for further management - Physicial Exam PE: 05/11/19 11:48 see above - Critical Care Time Total Critical Care Time: 35 Critical Care Statement: The care of this patient involved high complexity decision making to prevent further life threatening deterioration of the patient 's condition and/or to evaluate & treat vital organ system(s) failure or risk of failure. - Medical Decision Making 05/11/19 10:19 Labs reviewed potassium noted to be 7.1 the patient's EKG that is noted for prolonged QT interval (previous QTc interval was 508 in 2018 )we will treat the patient with Lasix, Kayexalate, sodium bicarb, albuterol, will try to get the patient dialysis. No signs of peaked T waves Heart Score/ECG Review - ECG Impressions Comment:: 05/11/19 09:32 Twelve-lead EKG was performed and reviewed by me. There is normal sinus rhythm with a normal rate. Rate of 98 The axis is normal. QT interval [address] or T wave abnormalities.
[2019-05-11 09:37] LABS: BASO % 0.5 % (0-2.0); EOS % 0.4 % (0-4.5); HEMATOCRIT 45.4 % (32.4-45.2); HEMOGLOBIN 13.7 GM/dL (10.7-15.3); LYMPH % 5.8 % (8-40); MCH 27.3 pg (25.7-33.7); MCHC 30.2 g/dl (32.0-36.0); MEAN CELL VOLUME 90.3 fl (80-96); MEAN PLT VOLUME 10.1 fl (7.5-11.1); MONO % 3.7 % (3.8-10.2); NEUT % 89.6 % (42.8-82.8); PLATELET COUNT 259 K/MM3 (134-434); RBC 5.03 M/mm3 (3.60-5.2); RDW 18.4 % (11.6-15.6); WHITE BLOOD COUNT 13.5 K/mm3 (4.0-10.0)
[2019-05-11 09:51] LABS: INR 0.9 (0.83-1.09); PROTHROMBIN TIME (PATIENT) 10.6 SEC (9.7-13.0)
[2019-05-11 09:53] LABS: VENOUS PC02 64.4 mmHg (38-52); VENOUS PH 7.25 (7.31-7.41)
[2019-05-11 09:54] LABS: ACTIVATED PTT 32.9 SECONDS (25.2-36.5)
[2019-05-11 10:01] LABS: VENOUS PO2 < 49 mmHg (28-48)
[2019-05-11 10:04] LABS: ALBUMIN 3.3 g/dl (3.4-5.0); ALK PHOS 314 U/L (45-117); ANION GAP 4 MMOL/L (8-16); BILIRUBIN,TOTAL 0.4 mg/dL (0.2-1); BLOOD UREA NITROGEN 32.1 mg/dL (7-18); CALCIUM 8.8 mg/dL (8.5-10.1); CHLORIDE 113 mmol/L (98-107); CO2 29 mmol/L (21-32); CREATININE 6.5 mg/dL (0.55-1.3); GLUCOSE,RANDOM 179 mg/dL (74-106); MAGNESIUM 2.5 mg/dL (1.8-2.4); N-TERMINAL BNP > 35000.0 pg/ml (5-125); SGOT/AST 23 U/L (15-37); SGPT/ALT 18 U/L (13-61); SODIUM 146 mmol/L (136-145); TOT PROT 6.8 g/dl (6.4-8.2)
[2019-05-11] MEDS ORDERED: VANCOMYCIN 1,000 MG in DEXTROSE 5%-WATER - 250 ML IVPB ONE (10:06)
[2019-05-11] MEDS ORDERED: PIPERACILLIN/TAZOB 4.5 GM 4.5 GM in DEXTROSE 5%-WATER 100 ML IVPB ONE (10:06)
[2019-05-11 10:07] LABS: POTASSIUM 7.1 mmol/L (3.5-5.1)
[2019-05-11] MEDS ORDERED: SODIUM POLYSTYRENE SULFONATE 15 GM/60 ML BOTTLE PO ONE (10:12)
[2019-05-11] MEDS ORDERED: FUROSEMIDE 40 MG/4 ML INJECTABLE VIAL IVPUSH ONE (10:12)
[2019-05-11] MEDS ORDERED: ALBUTEROL SO4 0.042% IH SOL 1.25 MG/3 ML VIAL.NEB NEB ONE (10:12)
[2019-05-11] MEDS ORDERED: SODIUM BICARBONATE 8.4% 50 MEQ/50 ML DISP.SYRIN IVPUSH ONE (10:17)
[2019-05-11 10:18] VITALS: BMI 76.6
--- NOTE | 2019-05-11 10:31 | HP ---
Admitting History and Physical - Primary Care Physician PCP: Theresa Cervantes - Admission Chief Complaint: SOB after not being able to go to HD History of Present Illness: 73 y/o female with PMH of ESRD on for 3 years, CVA, Htn, CAD, DM, CPOD, former smoker. Admission to OSH with similiar complaints in January and underwent HD with improvement of symptoms. States she had URI symptoms x 2 weeks with clear sputum. No recent travel, no sick contacts. 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 of Recent Travel: Yes ([place]) Home Medications - Allergies Allergies/Adverse Reactions: Allergies Allergy/AdvReac Type Severity Reaction Status Date / Time Klfccby-Ist-Fwa Reductase AdvReac Unknown Verified 04/30/17 11:01 Inhibitor - Home Medications Home Medications: Ambulatory Orders Clopidogrel Bisulfate [Clopidogrel] 75 mg PO DAILY 04/02/17 Aspirin Coated [Ecotrin -] 81 mg PO DAILY tab 04/06/17 Insulin (Novolog) [Novolog -] 5 units SQ AC 04/30/17 Diltiazem HCl [Diltiazem ER] 120 mg PO DAILY 05/11/19 Famotidine 20 mg PO BID 05/11/19 Insulin Glargine,Hum.rec.anlog [Lantus Solostar PEN -] 30 units SQ HS 05/11/19 Ranolazine [Ranolazine ER] 500 mg PO BID 05/11/19 Family Medical History Family History: Denies Review of Systems - Review of Systems Constitutional: reports: Lethargy, Loss of Appetite, Malaise Eyes: reports: No Symptoms HENT: reports: No Symptoms Neck: reports: No Symptoms Cardiovascular: reports: Edema, Shortness of Breath Respiratory: reports: Snoring, SOB, SOB on Exertion Gastrointestinal: reports: No Symptoms Genitourinary: reports: No Symptoms Breasts: reports: No Symptoms Reported Musculoskeletal: reports: Muscle Weakness Integumentary: reports: Rash (x 2 weeks, puritic) Neurological: reports: No Symptoms Endocrine: reports: Increased Thirst Hematology/Lymphatic: reports: No Symptoms Psychiatric: reports: No Symptoms Physical Examination Vital Signs: Vital Signs Temperature 98.4 F 05/11/19 10:10 Pulse Rate 113 H 05/11/19 10:10 Respiratory Rate 28 H 05/11/19 10:10 Blood Pressure 149/83 05/11/19 10:10 O2 Sat by Pulse Oximetry (%) 97 05/11/19 10:10 Constitutional: Yes: Well Nourished, Mild Distress (on BiPap with mild SOB) Eyes: Yes: WNL HENT: Yes: WNL, Atraumatic, Normocephalic Neck: Yes: WNL, Supple, Trachea Midline Cardiovascular: Yes: WNL, Regular Rate and Rhythm Respiratory: Yes: Regular, Diminished, Poor Air Entry Gastrointestinal: Yes: WNL, Normal Bowel Sounds ...Rectal Exam: Yes: Deferred Renal/: Yes: Anuria (make some urine) Breast(s): Yes: WNL Musculoskeletal: Yes: WNL Extremities: Yes: WNL Edema: Yes Edema: LLE: 2+, RLE: 2+ Peripheral Pulses WNL: Yes Peripheral Pulses: Left Radial: 0, Right Radial: 0, Left Doralis Pedis: 2+, Right Dorsalis Pedis: 2+, Left Femoral: 2+, Right Femoral: 2+ Integumentary: Yes: Rash (flat, dark rash to upper back, lower forarms and top on thighs.) Neurological: Yes: WNL, Alert, Oriented ...Motor Strength: WNL Psychiatric: Yes: WNL Labs: CBC, BMP 05/11/19 09:15 05/11/19 09:15 Imaging - Results Chest X-ray: Image Reviewed (RLL consoliddation) Problem List - Problems (1) Prophylactic measure Assessment/Plan: FEN emergent HD being arranged monitor electrolyes renal/diabetic diet DVT heparin sq Dispo admit ot tele until HD is done-will reassess need for tele bed afer HD full code discharge planning to home Code(s): Z29.9 - ENCOUNTER FOR PROPHYLACTIC MEASURES, UNSPECIFIED (2) ESRD (end stage renal disease) on dialysis Assessment/Plan: Dr Major to see pt HD today and then resume schedule / Code(s): N18.6 - END STAGE RENAL DISEASE; Z99.2 - DEPENDENCE ON RENAL DIALYSIS (3) Shortness of breath Assessment/Plan: BiPap as needed chest PT HS planned for today Code(s): R06.02 - SHORTNESS OF BREATH (4) PNA (pneumonia) Assessment/Plan: RLL consolidation noted on CXR vanco/zosyn given in ED pulmmonary consultation requested due nebs BiPap/suplemental O2 to mainatin SPO2 >92 Code(s): J18.9 - PNEUMONIA, UNSPECIFIED ORGANISM Qualifiers: Pneumonia type: due to unspecified organism Laterality: right Lung location: lower lobe of lung (5) CAD (coronary artery disease) Assessment/Plan: previous stent c/w plaxix, asa, ranolzine Code(s): I25.10 - ATHSCL HEART DISEASE OF [place] CORONARY ARTERY W/O ANG PCTRS (6) COPD (chronic obstructive pulmonary disease) Assessment/Plan: pulmonary to see c/w due nebs Code(s): J44.9 - CHRONIC OBSTRUCTIVE PULMONARY DISEASE, UNSPECIFIED (7) Diabetes Assessment/Plan: BGM AC/HS with novolog sliding scale diabetic diet Code(s): E11.9 - TYPE 2 DIABETES MELLITUS WITHOUT COMPLICATIONS Qualifiers: Diabetes mellitus type: type 1 Diabetes mellitus complication status: with kidney complications (8) ESRD (end stage renal disease) Code(s): N18.6 - END STAGE RENAL DISEASE (9) HTN (hypertension) Assessment/Plan: c/w diltiazem Code(s): I10 - ESSENTIAL (PRIMARY) HYPERTENSION (10) Hyperkalemia Assessment/Plan: K >7.0 emergent need for HD renal diet afetr HD admitt to tele monitoring unil K normalizes Code(s): E87.5 - HYPERKALEMIA Visit type - Emergency Visit Emergency Visit: Yes ED Registration Date: 05/11/19 Care time: The patient presented to the Emergency Department on the above date and was hospitalized for further evaluation of their emergent condition. - New Patient This patient is new to me today: Yes Date on this admission: 05/12/19 - Critical Care Critical Care patient: No
[2019-05-11] MEDS ORDERED: SODIUM CHLORIDE 250 ML IV PRN ×2 (11:40→11:41)
--- NOTE | 2019-05-11 12:05 | CONSULT ---
Consult - text type - Consultation Consultation Note: Renal consult for ESRD/Hyperkalemia This is a 73 year old woman with history of ESRSD on Hd (TTS) x 3 years, CVA, Hypertension, CAD, DM who presented from the dialysis unit with shortness of breath, cough with sputum production and elevated blood pressures. She had her last dialysis on Saturday. She reports eating a lot of potatoes yesterday. Denies any chest pain or palpitations. Has some night sweats last week. No fever. Does have right flank pain. Still makes urine. No Abd pain, N/V/ D. PMhx: as above Allergies: Statins Social Hx: No T/A/D ROS: as per HPI, all other pertinent ros negative Home Medications Medication Instructions Recorded Clopidogrel Bisulfate [Clopidogrel] 75 mg PO DAILY 04/02/17 Aspirin Coated [Ecotrin -] 81 mg PO DAILY tab 04/06/17 Insulin (Novolog) [Novolog -] 5 units SQ AC 04/30/17 Diltiazem HCl [Diltiazem ER] 120 mg PO DAILY 05/11/19 Famotidine 20 mg PO BID 05/11/19 Insulin Glargine,Hum.rec.anlog 30 units SQ HS 05/11/19 [Lantus Solostar PEN -] Ranolazine [Ranolazine ER] 500 mg PO BID 05/11/19 Vital Signs Temperature 98.4 F 05/11/19 10:10 Pulse Rate 113 H 05/11/19 10:10 Respiratory Rate 28 H 05/11/19 10:10 Blood Pressure 149/83 05/11/19 10:10 O2 Sat by Pulse Oximetry (%) 97 05/11/19 10:10 Intake & Output 05/08/19 05/09/19 05/10/19 05/11/19 23:59 23:59 23:59 23:59 Weight 178 kg NAD awake and alert neck supple RRR CTA, no rales or wheeze soft NT/ND no CVA tenderness no LE edema left forearm AVF CBC, BMP 05/11/19 09:15 05/11/19 09:15 Current Medications Aspirin (Ecotrin -) 81 mg PO DAILY TRUE Clopidogrel Bisulfate (Plavix -) 75 mg PO DAILY TRUE Diltiazem HCl (Cardizem Cd -) 120 mg PO DAILY TRUE Famotidine (Pepcid -) 20 mg PO BID [facility] Heparin Sodium (Porcine) (Heparin -) 300 unit IVPUSH Q1H TRUE Stop: 05/11/19 13:46 Heparin Sodium (Porcine) (Heparin -) 500 unit IVPUSH ONCE ONE Stop: 05/11/19 11:42 Heparin Sodium (Porcine) (Heparin -) 5,000 unit SQ BID TRUE Sodium Chloride (Normal Saline -) 250 mls @ 3,000 mls/hr IV PRN PRN PRN Reason: Hypotension during Dialysis Stop: 05/12/19 11:40 Sodium Chloride (Normal Saline -) 250 mls @ 3,000 mls/hr IV PRN PRN PRN Reason: Hypotension during Dialysis Stop: 05/12/19 11:41 Insulin Aspart (Novolog Vial Sliding Scale -) 1 vial SQ ACHS [facility]; Protocol Insulin Detemir (Levemir Vial) 30 units SQ HS TRUE Ranolazine (Ranexa -) 500 mg PO BID [facility] 73 year old woman with history of ESRSD on Hd (TTS) x 3 years , CVA, Hypertension, CAD, DM who presented from the dialysis unit with shortness of breath, cough with sputum production and elevated blood pressures. 1. ESRD on HD 2. Hyperkalemia secondary to non-adherence to dietary restrictions 3. Cough with sputum production from UTI vs. Bronchitis 4. Uncontrolled hypertension 5. Leukocytosis will arrange for urgent HD with UF as tolerated education about importance of dietiary potassium restrictions Blood cultures collected, also check urine cultures given flank pain Check Renal Us to r/o stones BP is improved now, trend post HD. continue home antihypertensive medications. Thank you Rory Major DO
--- NOTE | 2019-05-11 12:26 | CON.PULM ---
Consult Consult Specialty:: PULM/CCM Referred by:: Hospitalist Reason for Consultation:: SOB - History of Present Illness Chief Complaint: SOB History of Present Illness: 73 F, ESRSD on HD (TTS) x 3 years, CVA, Hypertension, CAD, DM, previous smoker and likely GOLD 1 COPD. Reports admission to [place] in January fir SOB due to excessive fluid. Was told that her heart valves are not working normally. She reports HD improved her symptoms. 2 weeks or URI symptoms. Cough with clear sputum. No fever or chills. 1 episode of minimal blood tinged sputum several days ago. No travel history or sick contacts. Was not prescribed outpatient meds such as ABX or steroids. She does snore but has never been screened for OSAS. 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 No: Asthma, Bronchitis, O2 Dependent, Pneumonia, Previously Intubated, Pulmonary Embolus, Pulmonary Fibrosis, Sleep Apnea Hepatobiliary: Yes: Cirrhosis Renal/: Yes: Renal Failure, Hemodialysis Endocrine: Yes: Diabetes Mellitus - Past Surgical History Past Surgical History: Yes: AV Fistula/Graft (left arm), Cataract Removal - Alcohol/Substance Use Hx Alcohol Use: No History of Substance Use: reports: None - Smoking History Smoking history: Former smoker Have you smoked in the past 12 months: No If you are a former smoker, when did you quit?: 2014 - Social History Usual Living Arrangement: Alone ADL: Independent 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 of 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 Travel: Yes ([place]) Home Medications - Allergies Allergies/Adverse Reactions: Allergies Allergy/AdvReac Type Severity Reaction Status Date / Time [id number] Reductase AdvReac Unknown Verified 04/30/17 11:01 Inhibitor - Home Medications Home Medications: Ambulatory Orders Clopidogrel Bisulfate [Clopidogrel] 75 mg PO DAILY 04/02/17 Aspirin Coated [Ecotrin -] 81 mg PO DAILY tab 04/06/17 Insulin (Novolog) [Novolog -] 5 units SQ AC 04/30/17 Diltiazem HCl [Diltiazem ER] 120 mg PO DAILY 05/11/19 Famotidine 20 mg PO BID 05/11/19 Insulin Glargine,Hum.rec.anlog [Lantus Solostar PEN -] 30 units SQ HS 05/11/19 Ranolazine [Ranolazine ER] 500 mg PO BID 05/11/19 Review of Systems - Review of Systems Constitutional: reports: Malaise. denies: Chills, Fever, Night Sweats, Unintentional Wgt. Loss Eyes: reports: No Symptoms HENT: reports: No Symptoms Neck: reports: No Symptoms Cardiovascular: reports: Edema, Shortness of Breath. denies: Chest Pain, Palpitations Respiratory: reports: Cough, Orthopnea, Snoring, SOB, SOB on Exertion. denies: Hemoptysis, PND, Wheezing Gastrointestinal: reports: No Symptoms Genitourinary: reports: No Symptoms Breasts: reports: No Symptoms Reported Musculoskeletal: reports: No Symptoms Integumentary: reports: No Symptoms Neurological: reports: No Symptoms Endocrine: reports: No Symptoms Hematology/Lymphatic: reports: No Symptoms Psychiatric: reports: No Symptoms Physical Exam Vital Sings: Vital Signs Temperature 98.4 F 05/11/19 10:10 Pulse Rate 113 H 05/11/19 10:10 Respiratory Rate 28 H 05/11/19 10:10 Blood Pressure 149/83 05/11/19 10:10 O2 Sat by Pulse Oximetry (%) 97 05/11/19 10:10 Constitutional: Yes: No Distress, Calm Eyes: Yes: Conjunctiva Clear, EOM Intact HENT: Yes: Atraumatic, Normocephalic Neck: Yes: Supple, Trachea Midline Cardiovascular: Yes: Regular Rate and Rhythm Respiratory: Yes: Diminished, Rhonchi, SOB, SOB on Exertion, Tachypnea. No: Accessory Muscle Use, Rales, Stridor, Wheezes ...Inspection: Yes: WNL ...Clubbing: No Gastrointestinal: Yes: Normal Bowel Sounds, Soft, Abdomen, Obese Musculoskeletal: Yes: WNL Extremities: Yes: WNL Edema: Yes Peripheral Pulses WNL: Yes Integumentary: Yes: WNL Neurological: Yes: WNL, Alert, Oriented ...Motor Strength: WNL Psychiatric: Yes: WNL, Alert, Oriented Labs: CBC, BMP 05/11/19 09:15 05/11/19 09:15 Imaging - Results Chest X-ray: Report Reviewed, Image Reviewed Problem List - Problems (1) ESRD (end stage renal disease) on dialysis Code(s): N18.6 - END STAGE RENAL DISEASE; Z99.2 - DEPENDENCE ON RENAL DIALYSIS (2) Shortness of breath Code(s): R06.02 - SHORTNESS OF BREATH (3) CAD (coronary artery disease) Code(s): I25.10 - ATHSCL HEART DISEASE OF [place] CORONARY ARTERY W/O ANG PCTRS (4) COPD (chronic obstructive pulmonary disease) Code(s): J44.9 - CHRONIC OBSTRUCTIVE PULMONARY DISEASE, UNSPECIFIED (5) Diabetes Code(s): E11.9 - TYPE 2 DIABETES MELLITUS WITHOUT COMPLICATIONS Qualifiers: Diabetes mellitus type: type 1 Diabetes mellitus complication status: with kidney complications (6) HTN (hypertension) Code(s): I10 - ESSENTIAL (PRIMARY) HYPERTENSION (7) Hyperkalemia Code(s): E87.5 - HYPERKALEMIA Assessment/Plan IMP: Do not suspect Respiratory Tact Infection or bacterial infection Likely resolving URI Volume overload as etiology of SOB Severe Hyperkalemia HD per Renal Follow K+ level closely Would monitor off ABX O2 as needed: saturation 95% on RA OSAS workup as an outpatient No smoking PFTs once stable as an outpatient Will follow Thank you. Dr Deras
[2019-05-11] MEDS: ACETAMINOPHEN 325 MG TABLET (FP) PO PRN ×2 (13:10→20:44)
--- NOTE | 2019-05-11 13:34 | EKG ---
Test Reason : Blood Pressure : / mmHG Vent. Rate : 098 BPM Atrial Rate : 098 BPM P-R Int : 146 ms QRS Dur : 094 ms QT Int : 406 ms P-R-T Axes : 035 -03 054 degrees QTc Int : 518 ms NORMAL SINUS RHYTHM POSSIBLE LEFT ATRIAL ENLARGEMENT PROLONGED QT ABNORMAL ECG WHEN COMPARED WITH ECG OF 25-MAR-2018 11:26, NO SIGNIFICANT CHANGE WAS FOUND Confirmed by DEAN LIMA MD ([id number]) on 05/11/2019 1:33:44 PM Referred By: Confirmed By:DEAN LIMA MD
[2019-05-11] MEDS: HEPARIN NA (PORCINE) 5,000 UNITS/ML 1ML VIAL IVPUSH SCH ×3 (13:40→15:47)
[2019-05-11] MEDS ORDERED: HEPARIN NA (PORCINE) 5,000 UNITS/ML 1ML VIAL IVPUSH ONE (13:45)
[2019-05-11] MEDS ORDERED: HYDROCORTISONE 0.5% TOPICAL CREAM 30 GM TUBE TP PRN (14:35)
[2019-05-11] MEDS: ALBUTEROL SO4 2.5/IPRATROPIUM 0.5 INH SOL 3 ML VIAL.NEB. NEB SCH (20:50)
[2019-05-11] MEDS: FAMOTIDINE 20 MG TABLET PO SCH (22:01)
[2019-05-11] MEDS: INSULIN (LEVEMIR) 100 UNITS/ML UNITS SQ SCH (22:01)
[2019-05-11] MEDS: RANOLAZINE E.R. 500 MG TABLET (FP) PO SCH (22:02)
[2019-05-11] MEDS: HEPARIN NA (PORCINE) 5,000 UNITS/ML 1ML VIAL SQ SCH (22:02)
[2019-05-11] MEDS: INSULIN SLIDING SCALE (NOVOLOG) 1 VIAL SQ SCH (22:02)
[2019-05-11] MEDS ORDERED: LORATADINE 10 MG TABLET PO ONE (23:22)
[2019-05-12] MEDS ORDERED: DEXTROSE 5%-WATER - 50 ML IVPB ONE ×2 (01:32→09:38)
[2019-05-12] MEDS ORDERED: PIPERACILLIN/TAZOBACTAM 3.375 GM VIAL IVPB ONE ×2 (01:32→09:38)
[2019-05-12] MEDS ORDERED: PIPERACILLIN/TAZOB 3.375 GM 3.375 GM in DEXTROSE 5%-WATER - 50 ML IVPB SCH (02:00)
[2019-05-12] MEDS: PIPERACILLIN/TAZOB 3.375 GM 3.375 GM in DEXTROSE 5%-WATER - 50 ML IVPB SCH ×2 (02:00→09:30)
[2019-05-12] MEDS: INSULIN SLIDING SCALE (NOVOLOG) 1 VIAL SQ SCH ×4 (06:11→22:18)
[2019-05-12] MEDS: ALBUTEROL SO4 2.5/IPRATROPIUM 0.5 INH SOL 3 ML VIAL.NEB. NEB SCH ×4 (07:56→20:23)
[2019-05-12] MEDS ORDERED: SODIUM CHLORIDE 250 ML IV PRN ×2 (09:27→09:29)
[2019-05-12] MEDS: FAMOTIDINE 20 MG TABLET PO SCH ×3 (10:00→22:20)
[2019-05-12] MEDS: RANOLAZINE E.R. 500 MG TABLET (FP) PO SCH ×2 (10:00→22:20)
[2019-05-12] MEDS: HEPARIN NA (PORCINE) 5,000 UNITS/ML 1ML VIAL SQ SCH ×2 (10:00→22:17)
--- NOTE | 2019-05-12 10:51 | PN ---
Progress Note, Physician History of Present Illness: PULMONARY ALERT,COMFORTABLE,-C/O SOB,-COUGH - Current Medication List Current Medications: Active Medications Acetaminophen (Tylenol -) 650 mg PO Q6H PRN PRN Reason: PAIN Last Admin: 05/11/19 20:44 Dose: 650 mg Albuterol/Ipratropium (Duoneb -) 1 amp NEB RQID [facility] Last Admin: 05/11/19 20:50 Dose: 1 amp Aspirin (Ecotrin -) 81 mg PO DAILY [facility] Clopidogrel Bisulfate (Plavix -) 75 mg PO DAILY [facility] Diltiazem HCl (Cardizem Cd -) 120 mg PO DAILY [facility] Famotidine (Pepcid -) 20 mg PO BID [facility] Last Admin: 05/11/19 22:01 Dose: 20 mg Heparin Sodium (Porcine) (Heparin -) 5,000 unit SQ BID [facility] Last Admin: 05/11/19 22:02 Dose: 5,000 unit Heparin Sodium (Porcine) (Heparin -) 300 unit IVPUSH Q1H TRUE Stop: 05/12/19 11:31 Heparin Sodium (Porcine) (Heparin -) 300 unit IVPUSH ONCE ONE Stop: 05/12/19 09:30 Hydrocortisone (Hytone 0.5% Cream -) 1 applic TP Q6H PRN PRN Reason: FOR ITCHING Sodium Chloride (Normal Saline -) 250 mls @ 3,000 mls/hr IV PRN PRN PRN Reason: Hypotension during Dialysis Stop: 05/12/19 11:40 Sodium Chloride (Normal Saline -) 250 mls @ 3,000 mls/hr IV PRN PRN PRN Reason: Hypotension during Dialysis Stop: 05/12/19 11:41 Piperacillin Sod/Tazobactam (Sod 3.375 gm/ Dextrose) 50 mls @ 100 mls/hr IVPB Q8H-IV TRUE; Protocol Piperacillin Sod/Tazobactam (Sod 3.375 gm/ Dextrose) 50 mls @ 100 mls/hr IVPB Q8H-IV TRUE; Protocol Stop: 05/12/19 18:29 Last Admin: 05/12/19 02:00 Dose: Not Given Sodium Chloride (Normal Saline -) 250 mls @ 3,000 mls/hr IV PRN PRN PRN Reason: Hypotension during Dialysis Stop: 05/13/19 09:27 Sodium Chloride (Normal Saline -) 250 mls @ 3,000 mls/hr IV PRN PRN PRN Reason: Hypotension during Dialysis Stop: 05/13/19 09:29 Insulin Aspart (Novolog Vial Sliding Scale -) 1 vial SQ ACHS [facility]; Protocol Last Admin: 05/12/19 06:11 Dose: Not Given Insulin Detemir (Levemir Vial) 30 units SQ HS [facility] Last Admin: 05/11/19 22:01 Dose: 30 units Ranolazine (Ranexa -) 500 mg PO BID [facility] Last Admin: 05/11/19 22:02 Dose: 500 mg - Objective Vital Signs: Vital Signs Temperature 98.2 F 05/12/19 09:30 Pulse Rate 99 H 05/12/19 09:30 Respiratory Rate 18 05/12/19 09:30 Blood Pressure 161/59 L 05/12/19 09:30 O2 Sat by Pulse Oximetry (%) 97 05/11/19 22:00 Constitutional: Yes: Well Nourished, Calm Eyes: Yes: WNL HENT: Yes: WNL Neck: Yes: WNL Cardiovascular: Yes: Regular Rate and Rhythm, S1, S2 Respiratory: Yes: Rales (BIBASILAR RALES) Gastrointestinal: Yes: Normal Bowel Sounds, Soft Extremities: Yes: WNL Edema: Yes Labs: CBC, BMP 05/11/19 09:15 05/11/19 09:15 INR, PTT INR 0.90 (0.83-1.09) 05/11/19 09:15 - ....Imaging Chest X-ray: Report Reviewed, Image Reviewed Assessment/Plan Problem List - Problems (1) ESRD (end stage renal disease) on dialysis Code(s): N18.6 - END STAGE RENAL DISEASE; Z99.2 - DEPENDENCE ON RENAL DIALYSIS (2) Shortness of breath Code(s): R06.02 - SHORTNESS OF BREATH (3) CAD (coronary artery disease) Code(s): I25.10 - ATHSCL HEART DISEASE OF [place] CORONARY ARTERY W/O ANG PCTRS (4) COPD (chronic obstructive pulmonary disease) Code(s): J44.9 - CHRONIC OBSTRUCTIVE PULMONARY DISEASE, UNSPECIFIED (5) Diabetes Code(s): E11.9 - TYPE 2 DIABETES MELLITUS WITHOUT COMPLICATIONS Qualifiers: Diabetes mellitus type: type 1 Diabetes mellitus complication status: with kidney complications (6) HTN (hypertension) Code(s): I10 - ESSENTIAL (PRIMARY) HYPERTENSION (7) Hyperkalemia Code(s): E87.5 - HYPERKALEMIA Assessment/Plan IMP: Do not suspect Respiratory Tact Infection or bacterial infection Likely resolving URI Volume overload as etiology of SOB Severe Hyperkalemia HD per Renal O2 as needed OSAS workup as an outpatient No smoking PFTs once stable as an outpatient MONITOR Efrem WILSON f/u chest x-ray DR PONCE
[2019-05-12] MEDS ORDERED: HEPARIN NA (PORCINE) 5,000 UNITS/ML 1ML VIAL IVPUSH ONE (12:00)
[2019-05-12] MEDS: HEPARIN NA (PORCINE) 5,000 UNITS/ML 1ML VIAL IVPUSH SCH ×3 (12:00→14:00)
[2019-05-12 12:38] LABS: ALBUMIN 3.2 g/dl (3.4-5.0); BILIRUBIN,TOTAL 0.5 mg/dL (0.2-1); BLOOD UREA NITROGEN 17.7 mg/dL (7-18); CREATININE 4.9 mg/dL (0.55-1.3); MAGNESIUM 2.2 mg/dL (1.8-2.4); PHOSPHOROUS 3.6 mg/dL (2.5-4.9); POTASSIUM 4.9 mmol/L (3.5-5.1); TOT PROT 6.8 g/dl (6.4-8.2)
[2019-05-12 13:50] LABS: BASO % 0.5 % (0-2.0); EOS % 1.3 % (0-4.5); HEMATOCRIT 46.7 % (32.4-45.2); HEMOGLOBIN 14.7 GM/dL (10.7-15.3); LYMPH % 26.8 % (8-40); MCH 27.8 pg (25.7-33.7); MCHC 31.5 g/dl (32.0-36.0); MEAN CELL VOLUME 88.5 fl (80-96); MEAN PLT VOLUME 10.6 fl (7.5-11.1); MONO % 6.4 % (3.8-10.2); PLATELET COUNT 222 K/MM3 (134-434); RBC 5.27 M/mm3 (3.60-5.2); RDW 18.2 % (11.6-15.6)
--- NOTE | 2019-05-12 13:54 | CON.ID ---
Consult Consult Specialty:: infectious diseases Referred by:: Katya Reason for Consultation:: pneumonia,sob - History of Present Illness Chief Complaint: sob,rt lower side pain on abd History of Present Illness: 73 y/o female with PMH of ESRD on HS // for 3 years, CVA, Htn, CAD, DM, CPOD, former smoker. Admission to OSH with similiar complaints in January and underwent HD with improvement of symptoms. States she had URI symptoms x 2 weeks with clear sputum. No recent travel, no sick contacts. Presented to [facility] for extra HD sesions patient mentions that she has pain on the rt side of abd abd laterally now breathing well being dialyzed - History Source History Provided By: Patient Limitations to Obtaining History: No Limitations - Past Medical History COLLAR RUNNER: Yes: CVA Cardio/Vascular: Yes: CAD (s/p stents) Pulmonary: Yes: COPD. 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 Travel: Yes ([place]) Home Medications - Allergies Allergies/Adverse Reactions: Allergies Allergy/AdvReac Type Severity Reaction Status Date / Time Kqnsmtv-Spc-Yzj Reductase AdvReac Unknown Verified 04/30/17 11:01 Inhibitor - Home Medications Home Medications: Ambulatory Orders Clopidogrel Bisulfate [Clopidogrel] 75 mg PO DAILY 04/02/17 Aspirin Coated [Ecotrin -] 81 mg PO DAILY tab 04/06/17 Insulin (Novolog) [Novolog -] 5 units SQ AC 04/30/17 Diltiazem HCl [Diltiazem ER] 120 mg PO DAILY 05/11/19 Famotidine 20 mg PO BID 05/11/19 Insulin Glargine,Hum.rec.anlog [Lantus Solostar PEN -] 30 units SQ HS 05/11/19 Ranolazine [Ranolazine ER] 500 mg PO BID 05/11/19 Review of Systems - Review of Systems Constitutional: reports: No Symptoms Eyes: reports: No Symptoms HENT: reports: No Symptoms Neck: reports: No Symptoms Cardiovascular: reports: No Symptoms Respiratory: reports: SOB, SOB on Exertion Gastrointestinal: reports: Other (muscular pain on rt side of the abdomen laterally) Genitourinary: reports: No Symptoms Musculoskeletal: reports: Other (muscle pain) Integumentary: reports: No Symptoms Neurological: reports: No Symptoms Endocrine: reports: No Symptoms Hematology/Lymphatic: reports: No Symptoms Psychiatric: reports: No Symptoms Physical Exam Vital Signs: Vital Signs Temperature 98.6 F 05/12/19 11:25 Pulse Rate 94 H 05/12/19 13:30 Respiratory Rate 18 05/12/19 13:30 Blood Pressure 91/62 05/12/19 13:30 O2 Sat by Pulse Oximetry (%) 97 05/11/19 22:00 Constitutional: Yes: Well Nourished, Calm, Mild Distress Eyes: Yes: Conjunctiva Clear Cardiovascular: Yes: Regular Rate and Rhythm Respiratory: Yes: Regular, CTA Bilaterally Gastrointestinal: Yes: Normal Bowel Sounds, Soft Musculoskeletal: Yes: Other (muscular pain on rt side of the abdomen) Neurological: Yes: Alert, Oriented Psychiatric: Yes: Alert, Oriented Labs: CBC, BMP 05/12/19 11:30 05/12/19 06:00 Imaging - Results Chest X-ray: Report Reviewed, Image Reviewed Assessment/Plan Problem List - Problems (1) ESRD (end stage renal disease) on dialysis Code(s): N18.6 - END STAGE RENAL DISEASE; Z99.2 - DEPENDENCE ON RENAL DIALYSIS (2) Shortness of breath Code(s): R06.02 - SHORTNESS OF BREATH (3) CAD (coronary artery disease) Code(s): I25.10 - ATHSCL HEART DISEASE OF [place] CORONARY ARTERY W/O ANG PCTRS (4) COPD (chronic obstructive pulmonary disease) Code(s): J44.9 - CHRONIC OBSTRUCTIVE PULMONARY DISEASE, UNSPECIFIED (5) Diabetes Code(s): E11.9 - TYPE 2 DIABETES MELLITUS WITHOUT COMPLICATIONS Qualifiers: Diabetes mellitus type: type 1 Diabetes mellitus complication status: with kidney complications (6) HTN (hypertension) Code(s): I10 - ESSENTIAL (PRIMARY) HYPERTENSION (7) Hyperkalemia Code(s): E87.5 - HYPERKALEMIA i think her symptoms are due to fluid overload will not start abx close watch dialysis pain in the rt side of the abd probably muscular local pain mgmt
--- NOTE | 2019-05-12 15:42 | PN ---
Progress Note (short form) - Note Progress Note: Renal follow up for ESRD on HD Seen and examined at the bedside s/p dialysis this am with 2L UF, UF limited by marginal BP complains of right flank pain no fever or chills no sob, chest pain, N/V Vital Signs Temperature 98.6 F 05/12/19 14:43 Pulse Rate 85 05/12/19 14:43 Respiratory Rate 18 05/12/19 14:43 Blood Pressure 133/82 05/12/19 14:43 O2 Sat by Pulse Oximetry (%) 97 05/11/19 22:00 Intake & Output 05/09/19 05/10/19 05/11/19 05/12/19 23:59 23:59 23:59 23:59 Intake Total 400 400 Output Total 3000 2400 Balance -2600 -2000 Weight 81.465 kg 75.659 kg NAD RRR CTA, no rales or wheeze soft NT/ND no LE edema left forearm AVF CBC, BMP 05/12/19 11:30 05/12/19 06:00 Current Medications Acetaminophen (Tylenol -) 650 mg PO Q6H PRN PRN Reason: PAIN Last Admin: 05/11/19 20:44 Dose: 650 mg Albuterol/Ipratropium (Duoneb -) 1 amp NEB RQID [facility] Last Admin: 05/12/19 12:56 Dose: 1 amp Aspirin (Ecotrin -) 81 mg PO DAILY [facility] Clopidogrel Bisulfate (Plavix -) 75 mg PO DAILY [facility] Diltiazem HCl (Cardizem Cd -) 120 mg PO DAILY [facility] Famotidine (Pepcid -) 20 mg PO BID [facility] Last Admin: 05/11/19 22:01 Dose: 20 mg Heparin Sodium (Porcine) (Heparin -) 5,000 unit SQ BID TRUE Last Admin: 05/11/19 22:02 Dose: 5,000 unit Hydrocortisone (Hytone 0.5% Cream -) 1 applic TP Q6H PRN PRN Reason: FOR ITCHING Piperacillin Sod/Tazobactam (Sod 3.375 gm/ Dextrose) 50 mls @ 100 mls/hr IVPB Q8H-IV TRUE; Protocol Stop: 05/12/19 18:29 Last Admin: 05/12/19 09:30 Dose: Not Given Sodium Chloride (Normal Saline -) 250 mls @ 3,000 mls/hr IV PRN PRN PRN Reason: Hypotension during Dialysis Stop: 05/13/19 09:27 Sodium Chloride (Normal Saline -) 250 mls @ 3,000 mls/hr IV PRN PRN PRN Reason: Hypotension during Dialysis Stop: 05/13/19 09:29 Insulin Aspart (Novolog Vial Sliding Scale -) 1 vial SQ ACHS [facility]; Protocol Last Admin: 05/12/19 11:53 Dose: Not Given Insulin Detemir (Levemir Vial) 30 units SQ HS [facility] Last Admin: 05/11/19 22:01 Dose: 30 units Ranolazine (Ranexa -) 500 mg PO BID TRUE Last Admin: 05/11/19 22:02 Dose: 500 mg 73 year old woman with history of ESRSD on Hd (TTS) x 3 years , CVA, Hypertension, CAD, DM who presented from the dialysis unit with shortness of breath, cough with sputum production and elevated blood pressures. 1. ESRD on HD 2. Hyperkalemia secondary to non-adherence to dietary restrictions 3. Cough with sputum production from UTI vs. Bronchitis 4. Uncontrolled hypertension 5. Leukocytosis s/p 2nd consecuctive day of dialysis today, UF of 2L taken next planned dialysis is maintain fluid and potassium restriction Blood cultures collected, also check urine cultures given flank pain Check Renal Us to r/o stones (study pending) BP is improved now, trend post HD. continue home antihypertensive medications. Thank you Rory Major DO
--- NOTE | 2019-05-12 16:07 | PN ---
Physical Exam: SUBJECTIVE: Patient seen and examined, getting dialysis. OBJECTIVE: 73 y/o female with PMH of ESRD on / for 3 years, CVA, Htn, CAD, DM, CPOD, former smoker. Admission to OSH with similiar complaints in January and underwent HD with improvement of symptoms. States she had URI symptoms x 2 weeks with clear sputum. No recent travel, no sick contacts. Presented to [facility] for extra HD sesions and she was prompted to go to ED Vital Signs Period Temp Pulse Resp BP Sys/Moser Pulse Ox Last 24 Hr 98.2 F-99.2 F 45-99 18-20 90-168/41-100 97-97 GENERAL: The patient is awake, alert, and fully oriented, in no acute distress. HEAD: Normal with no signs of trauma. EYES: PERRL, extraocular movements intact, sclera anicteric, conjunctiva clear. No ptosis. ENT: Ears normal, nares patent, oropharynx clear without exudates, moist mucous membranes. NECK: Trachea midline, full range of motion, supple. LUNGS: Breath sounds equal, clear to auscultation bilaterally HEART: Regular rate and rhythm, S1, S2 without murmur, rub or gallop. ABDOMEN: Soft, nontender, nondistended, normoactive bowel sounds, no guarding, no rebound, no hepatosplenomegaly, no masses. EXTREMITIES: 2+ pulses, warm, well-perfused, no edema. NEUROLOGICAL: Cranial nerves II through XII grossly intact. Normal speech, gait not observed. PSYCH: Normal mood, normal affect. SKIN: Warm, dry, normal turgor, no rashes or lesions noted Laboratory Results - last 24 hr 05/11/19 05/11/19 05/12/19 12:40 20:58 05:49 WBC RBC Hgb Hct MCV MCH MCHC RDW Plt Count MPV Absolute Neuts (auto) Neutrophils % Lymphocytes % Monocytes % Eosinophils % Basophils % Nucleated RBC % Sodium Potassium Chloride Carbon Dioxide Anion Gap BUN Creatinine Est GFR (CKD-EPI)AfAm Est GFR (CKD-EPI)NonAf POC Glucometer 202 73 Random Glucose Hemoglobin A1c % Calcium Phosphorus Magnesium Total Bilirubin AST ALT Alkaline Phosphatase Total Protein Albumin Random Vancomycin Hep Bs Antigen Negative Hep C Ab Diagnostic 0.2 05/12/19 05/12/19 05/12/19 06:00 11:30 11:30 WBC 8.0 RBC 5.27 H Hgb 14.7 Hct 46.7 H MCV 88.5 MCH 27.8 MCHC 31.5 L RDW 18.2 H Plt Count 222 MPV 10.6 Absolute Neuts (auto) 5.2 Neutrophils % 65.0 D Lymphocytes % 26.8 D Monocytes % 6.4 Eosinophils % 1.3 D Basophils % 0.5 Nucleated RBC % 0 Sodium 142 Potassium 4.9 Chloride 104 Carbon Dioxide 30 Anion Gap 9 BUN 17.7 Creatinine 4.9 H Est GFR (CKD-EPI)AfAm 9.41 Est GFR (CKD-EPI)NonAf 8.12 POC Glucometer Random Glucose 177 H Hemoglobin A1c % Calcium 9.0 Phosphorus 3.6 Magnesium 2.2 Total Bilirubin 0.5 AST 16 ALT 17 Alkaline Phosphatase 291 H Total Protein 6.8 Albumin 3.2 L Random Vancomycin < 0.8 L Hep Bs Antigen Hep C Ab Diagnostic 05/12/19 05/12/19 05/12/19 11:30 11:51 14:29 WBC RBC Hgb Hct MCV MCH MCHC RDW Plt Count MPV Absolute Neuts (auto) Neutrophils % Lymphocytes % Monocytes % Eosinophils % Basophils % Nucleated RBC % Sodium Potassium Chloride Carbon Dioxide Anion Gap BUN Creatinine Est GFR (CKD-EPI)AfAm Est GFR (CKD-EPI)NonAf POC Glucometer 175 138 Random Glucose Hemoglobin A1c % 10.6 H Calcium Phosphorus Magnesium Total Bilirubin AST ALT Alkaline Phosphatase Total Protein Albumin Random Vancomycin Hep Bs Antigen Hep C Ab Diagnostic Active Medications Generic Name Dose Route Start Last Admin Trade Name Freq PRN Reason Stop Dose Admin Acetaminophen 650 mg 05/11/19 13:01 05/11/19 20:44 Tylenol - PO 650 mg Q6H PRN Administration PAIN Albuterol/Ipratropium 1 amp 05/11/19 20:00 05/12/19 12:56 Duoneb - NEB 1 amp RQID TRUE Administration Aspirin 81 mg 05/12/19 10:00 Ecotrin - PO DAILY TRUE Clopidogrel Bisulfate 75 mg 05/12/19 10:00 Plavix - PO DAILY TRUE Diltiazem HCl 120 mg 05/12/19 10:00 Cardizem Cd - PO DAILY TRUE Famotidine 20 mg 05/11/19 22:00 05/11/19 22:01 Pepcid - PO 20 mg BID TRUE Administration Heparin Sodium (Porcine) 5,000 unit 05/11/19 22:00 05/11/19 22:02 Heparin - SQ 5,000 unit BID TRUE Administration Hydrocortisone 1 applic 05/11/19 14:35 Hytone 0.5% Cream - TP Q6H PRN FOR ITCHING Piperacillin Sod/Tazobactam 50 mls @ 100 mls/hr 05/12/19 02:00 05/12/19 09:30 Sod 3.375 gm/ Dextrose IVPB 05/12/19 18:29 Not Given Q8H-IV TRUE Protocol Sodium Chloride 250 mls @ 3,000 mls/hr 05/12/19 09:27 Normal Saline - IV 05/13/19 09:27 PRN PRN Hypotension during Dialysis Sodium Chloride 250 mls @ 3,000 mls/hr 05/12/19 09:29 Normal Saline - IV 05/13/19 09:29 PRN PRN Hypotension during Dialysis Insulin Aspart 1 vial 05/11/19 16:30 05/12/19 11:53 Novolog Vial Sliding Scale - SQ Not Given ACHS TRUE Protocol Insulin Detemir 30 units 05/11/19 22:00 05/11/19 22:01 Levemir Vial SQ 30 units HS TRUE Administration Ranolazine 500 mg 05/11/19 22:00 05/11/19 22:02 Ranexa - PO 500 mg BID TRUE Administration ASSESSMENT/PLAN: Problem List - Problems (1) ESRD (end stage renal disease) on dialysis Assessment/Plan: dialysis today shortness of breath improved with dialysis tolerating room air followed by pulmonary Code(s): N18.6 - END STAGE RENAL DISEASE; Z99.2 - DEPENDENCE ON RENAL DIALYSIS (2) PNA (pneumonia) Assessment/Plan: per ID, no need for antibiotics, no pneumonia suspected Code(s): J18.9 - PNEUMONIA, UNSPECIFIED ORGANISM Qualifiers: Pneumonia type: due to unspecified organism Laterality: right Lung location: lower lobe of lung Qualified Code(s): J18.9 - Pneumonia, unspecified organism (3) Respiratory distress Assessment/Plan: resolved with dialysis Code(s): R06.03 - ACUTE RESPIRATORY DISTRESS (4) Shortness of breath Code(s): R06.02 - SHORTNESS OF BREATH (5) CAD (coronary artery disease) Code(s): I25.10 - ATHSCL HEART DISEASE OF [place] CORONARY ARTERY W/O ANG PCTRS (6) COPD (chronic obstructive pulmonary disease) Assessment/Plan: not in acute exacerbation Code(s): J44.9 - CHRONIC OBSTRUCTIVE PULMONARY DISEASE, UNSPECIFIED (7) Diabetes Assessment/Plan: monitor bgms Code(s): E11.9 - TYPE 2 DIABETES MELLITUS WITHOUT COMPLICATIONS Qualifiers: Diabetes mellitus type: type 1 Diabetes mellitus complication status: with kidney complications (8) Prophylactic measure Code(s): Z29.9 - ENCOUNTER FOR PROPHYLACTIC MEASURES, UNSPECIFIED Visit type - Emergency Visit Emergency Visit: Yes ED Registration Date: 05/11/19 Care time: The patient presented to the Emergency Department on the above date and was hospitalized for further evaluation of their emergent condition. - New Patient This patient is new to me today: Yes Date on this admission: 05/16/19 - Critical Care Critical Care patient: No - Discharge Referral Referred to [facility] Med P.C.: No
[2019-05-12] MEDS: ACETAMINOPHEN 325 MG TABLET (FP) PO PRN (16:20)
[2019-05-12] MEDS: CLOPIDOGREL BISULFATE 75 MG TABLET (FP) PO SCH (16:22)
[2019-05-12] MEDS: ASPIRIN COATED 81 MG TABLET.EC PO SCH (16:22)
[2019-05-12] MEDS ORDERED: INSULIN (NOVOLOG) ASPART 100 UNITS/ML 10ML VIAL ONE (21:59)
[2019-05-12] MEDS: INSULIN (LEVEMIR) 100 UNITS/ML UNITS SQ SCH (22:19)
[2019-05-13] MEDS: INSULIN SLIDING SCALE (NOVOLOG) 1 VIAL SQ SCH ×4 (07:01→22:22)
[2019-05-13] MEDS: ALBUTEROL SO4 2.5/IPRATROPIUM 0.5 INH SOL 3 ML VIAL.NEB. NEB SCH ×3 (07:40→15:30)
[2019-05-13] MEDS: RANOLAZINE E.R. 500 MG TABLET (FP) PO SCH ×2 (10:52→22:24)
[2019-05-13] MEDS: FAMOTIDINE 20 MG TABLET PO SCH ×2 (10:52→22:20)
[2019-05-13] MEDS: ASPIRIN COATED 81 MG TABLET.EC PO SCH (10:52)
[2019-05-13] MEDS: CLOPIDOGREL BISULFATE 75 MG TABLET (FP) PO SCH (10:52)
[2019-05-13] MEDS: HEPARIN NA (PORCINE) 5,000 UNITS/ML 1ML VIAL SQ SCH ×2 (10:53→22:34)
--- NOTE | 2019-05-13 11:10 | PN ---
Progress Note, Physician History of Present Illness: pulmonary alert,c/o rasmussen,-cp,-cough,-hemoptysis - Current Medication List Current Medications: Active Medications Acetaminophen (Tylenol -) 650 mg PO Q6H PRN PRN Reason: PAIN Last Admin: 05/12/19 16:20 Dose: 650 mg Albuterol/Ipratropium (Duoneb -) 1 amp NEB RQID [facility] Last Admin: 05/13/19 07:40 Dose: 1 amp Aspirin (Ecotrin -) 81 mg PO DAILY [facility] Last Admin: 05/13/19 10:52 Dose: 81 mg Clopidogrel Bisulfate (Plavix -) 75 mg PO DAILY [facility] Last Admin: 05/13/19 10:52 Dose: 75 mg Diltiazem HCl (Cardizem Cd -) 120 mg PO DAILY [facility] Last Admin: 05/13/19 10:52 Dose: 120 mg Famotidine (Pepcid -) 20 mg PO BID [facility] Last Admin: 05/13/19 10:52 Dose: 20 mg Heparin Sodium (Porcine) (Heparin -) 5,000 unit SQ BID [facility] Last Admin: 05/13/19 10:53 Dose: 5,000 unit Hydrocortisone (Hytone 0.5% Cream -) 1 applic TP Q6H PRN PRN Reason: FOR ITCHING Insulin Aspart (Novolog Vial Sliding Scale -) 1 vial SQ [facility]; Protocol Last Admin: 05/13/19 07:01 Dose: Not Given Insulin Detemir (Levemir Vial) 30 units SQ HS [facility] Last Admin: 05/12/19 22:19 Dose: 30 units Ranolazine (Ranexa -) 500 mg PO BID [facility] Last Admin: 05/13/19 10:52 Dose: 500 mg - Objective Vital Signs: Vital Signs Temperature 97.7 F 05/13/19 05:00 Pulse Rate 107 H 05/13/19 05:00 Respiratory Rate 19 05/13/19 05:00 Blood Pressure 115/56 L 05/13/19 05:00 O2 Sat by Pulse Oximetry (%) 99 05/12/19 21:00 Constitutional: Yes: Well Nourished, Calm Eyes: Yes: Occular Prosthesis HENT: Yes: WNL Neck: Yes: WNL Cardiovascular: Yes: Regular Rate and Rhythm, S1, S2 Respiratory: Yes: Diminished Gastrointestinal: Yes: Normal Bowel Sounds, Soft Extremities: Yes: WNL Edema: No Labs: CBC, BMP Assessment/Plan Problem List - Problems (1) ESRD (end stage renal disease) on dialysis Code(s): N18.6 - END STAGE RENAL DISEASE; Z99.2 - DEPENDENCE ON RENAL DIALYSIS (2) Shortness of breath Code(s): R06.02 - SHORTNESS OF BREATH (3) CAD (coronary artery disease) Code(s): I25.10 - ATHSCL HEART DISEASE OF [place] CORONARY ARTERY W/O ANG PCTRS (4) COPD (chronic obstructive pulmonary disease) Code(s): J44.9 - CHRONIC OBSTRUCTIVE PULMONARY DISEASE, UNSPECIFIED (5) Diabetes Code(s): E11.9 - TYPE 2 DIABETES MELLITUS WITHOUT COMPLICATIONS Qualifiers: Diabetes mellitus type: type 1 Diabetes mellitus complication status: with kidney complications (6) HTN (hypertension) Code(s): I10 - ESSENTIAL (PRIMARY) HYPERTENSION (7) Hyperkalemia Code(s): E87.5 - HYPERKALEMIA Assessment/Plan IMP: Do not suspect Respiratory Tact Infection or bacterial infection Likely resolving URI Volume overload as etiology of SOB Severe Hyperkalemia HD per Renal O2 as needed OSAS workup as an outpatient No smoking PFTs once stable as an outpatient MONITOR Efrem WILSON DR
--- NOTE | 2019-05-13 12:39 | ECHO ---
Name: BROOKLYNN WADE Exam:Adult Echocardiogram Study Date: 05/13/2019 08:52 AM Age: 73 yrs Height: 60 in Weight: 167 lb BSA: 1.7 m2 MMode/2D Measurements & Calculations IVSd: 1.5 cm Ao root diam: 2.9 cm LVIDd: 3.4 cm LA dimension: 2.3 cm LVIDs: 2.3 cm LVPWd: 1.2 cm LVPWs: 0.95 cm EDV(Teich): 46.6 ml ESV(Teich): 17.4 ml LVOT diam: 1.8 cm LAV (MOD-bp): 32.0 ml Doppler Measurements & Calculations MV V2 max: 163.8 cm/sec MV E max fernando: 81.9 cm/sec MV max P.8 mmHg MV A max fernando: 153.0 cm/sec MV V2 mean: 88.2 cm/sec MV E/A: 0.54 MV mean P.0 mmHg MV dec time: 0.13 sec MV V2 VTI: 27.5 cm Ao V2 max: 142.1 cm/sec LV V1 max P.4 mmHg Ao max P.1 mmHg LV V1 max: 116.0 cm/sec PALLAVI(V,D): 2.2 cm2 MR max fernando: 401.2 cm/sec TR max fernando: 222.0 cm/sec MR max P.4 mmHg TR max P.8 mmHg PA V2 max: 97.0 cm/sec Med Peak E' Fernando: 5.8 cm/sec PA max P.9 mmHg Med E/e': 14.1 Lat Peak E' Fernando: 3.2 cm/sec Lat E/e': 25.8 Procedure The study was technically difficult with many images being suboptimal in quality. Left Ventricle There is severe concentric left ventricular hypertrophy. The left ventricle is not well visualized. T he left ventricular ejection fraction is normal. E/A reversal consistent with but not diagnostic of poor LV compliance. Regional wall motion abnormalities cannot be excluded due to limited visualization. Right Ventricle The right ventricle is not well visualized. The right ventricle is normal in size and function. Atria Normal left and right atrial size and function. Mitral Valve The mitral valve is not well visualized. There is moderate mitral valve thickening. There is no braxton l valve stenosis. There is trace mitral regurgitation. Tricuspid Valve The tricuspid valve is not well visualized. There is no tricuspid stenosis. There is trace tricuspid regurgitation. Right ventricular systolic pressure is normal. Aortic Valve The aortic valve is normal in structure and function. No hemodynamically significant valvular aortic stenosis. No aortic regurgitation is present. Pulmonic Valve The pulmonic valve is not well visualized. Great Vessels The aortic root is normal size. Pericardium/Pleura There is no pericardial effusion. Interpretation Summary The study was technically difficult with many images being suboptimal in quality. There is severe concentric left ventricular hypertrophy. The left ventricular ejection fraction is normal. Regional wall motion abnormalities cannot be excluded due to limited visualization. The left ventricle is not well visualized. There is moderate mitral valve thickening. The mitral valve is not well visualized. There is trace tricuspid regurgitation. Right ventricular systolic pressure is normal. E/A reversal consistent with but not diagnostic of poor LV compliance There is trace mitral regurgitation. MD Gerhard Payne 05/13/2019 12:38 PM
--- NOTE | 2019-05-13 13:20 | PN ---
Progress Note (short form) - Note Progress Note: Renal follow up for ESRD on HD Seen and examined at the bedside awake and alert still has right flank pain s/p dialysis yesterday Vital Signs Temperature 97.7 F 05/13/19 05:00 Pulse Rate 107 H 05/13/19 05:00 Respiratory Rate 19 05/13/19 05:00 Blood Pressure 115/56 L 05/13/19 05:00 O2 Sat by Pulse Oximetry (%) 99 05/12/19 21:00 Intake & Output 05/10/19 05/11/19 05/12/19 05/13/19 23:59 23:59 23:59 23:59 Intake Total 400 650 0 Output Total 3000 2400 Balance -2600 -1750 0 Weight 81.465 kg 75.659 kg 75.614 kg NAD RRR CTA, no rales or wheeze soft NT/ND no LE edema left forearm AVF CBC, BMP 05/12/19 11:30 05/12/19 06:00 Current Medications Acetaminophen (Tylenol -) 650 mg PO Q6H PRN PRN Reason: PAIN Last Admin: 05/12/19 16:20 Dose: 650 mg Albuterol/Ipratropium (Duoneb -) 1 amp NEB RQID [facility] Last Admin: 05/13/19 11:18 Dose: Not Given Aspirin (Ecotrin -) 81 mg PO DAILY [facility] Last Admin: 05/13/19 10:52 Dose: 81 mg Clopidogrel Bisulfate (Plavix -) 75 mg PO DAILY [facility] Last Admin: 05/13/19 10:52 Dose: 75 mg Diltiazem HCl (Cardizem Cd -) 120 mg PO DAILY [facility] Last Admin: 05/13/19 10:52 Dose: 120 mg Famotidine (Pepcid -) 20 mg PO BID [facility] Last Admin: 05/13/19 10:52 Dose: 20 mg Heparin Sodium (Porcine) (Heparin -) 5,000 unit SQ BID [facility] Last Admin: 05/13/19 10:53 Dose: 5,000 unit Hydrocortisone (Hytone 0.5% Cream -) 1 applic TP Q6H PRN PRN Reason: FOR ITCHING Insulin Aspart (Novolog Vial Sliding Scale -) 1 vial SQ ACHS [facility]; Protocol Last Admin: 05/13/19 07:01 Dose: Not Given Insulin Detemir (Levemir Vial) 30 units SQ HS [facility] Last Admin: 05/12/19 22:19 Dose: 30 units Ranolazine (Ranexa -) 500 mg PO BID [facility] Last Admin: 05/13/19 10:52 Dose: 500 mg 73 year old woman with history of ESRSD on Hd (TTS) x 3 years , CVA, Hypertension, CAD, DM who presented from the dialysis unit with shortness of breath, cough with sputum production and elevated blood pressures. 1. ESRD on HD 2. Hyperkalemia secondary to non-adherence to dietary restrictions 3. Cough with sputum production from UTI vs. Bronchitis 4. Uncontrolled hypertension 5. Leukocytosis no acute need for [employer] today, next dialysis is tomorrow with aggressive UF maintain fluid and potassium restriction Renal US showed no pathology, so flank pain is likely musculoskeletal in etiology continue present antihypertensive medications Thank you Rory Major DO
--- NOTE | 2019-05-13 13:35 | PN ---
Progress Note, Physician History of Present Illness: stable still c/o of the side pain - Current Medication List Current Medications: Active Medications Acetaminophen (Tylenol -) 650 mg PO Q6H PRN PRN Reason: PAIN Last Admin: 05/12/19 16:20 Dose: 650 mg Albuterol/Ipratropium (Duoneb -) 1 amp NEB RQID [facility] Last Admin: 05/13/19 11:18 Dose: Not Given Aspirin (Ecotrin -) 81 mg PO DAILY [facility] Last Admin: 05/13/19 10:52 Dose: 81 mg Clopidogrel Bisulfate (Plavix -) 75 mg PO DAILY [facility] Last Admin: 05/13/19 10:52 Dose: 75 mg Diltiazem HCl (Cardizem Cd -) 120 mg PO DAILY [facility] Last Admin: 05/13/19 10:52 Dose: 120 mg Famotidine (Pepcid -) 20 mg PO BID [facility] Last Admin: 05/13/19 10:52 Dose: 20 mg Heparin Sodium (Porcine) (Heparin -) 5,000 unit SQ BID [facility] Last Admin: 05/13/19 10:53 Dose: 5,000 unit Hydrocortisone (Hytone 0.5% Cream -) 1 applic TP Q6H PRN PRN Reason: FOR ITCHING Insulin Aspart (Novolog Vial Sliding Scale -) 1 vial SQ [facility]; Protocol Last Admin: 05/13/19 07:01 Dose: Not Given Insulin Detemir (Levemir Vial) 30 units SQ HS [facility] Last Admin: 05/12/19 22:19 Dose: 30 units Ranolazine (Ranexa -) 500 mg PO BID [facility] Last Admin: 05/13/19 10:52 Dose: 500 mg - Objective Vital Signs: Vital Signs Temperature 97.7 F 05/13/19 05:00 Pulse Rate 103 H 05/13/19 11:19 Respiratory Rate 19 05/13/19 05:00 Blood Pressure 115/56 L 05/13/19 05:00 O2 Sat by Pulse Oximetry (%) 98 05/13/19 11:19 Constitutional: Yes: Calm, Mild Distress Cardiovascular: Yes: S1, S2 Respiratory: Yes: Regular, CTA Bilaterally Gastrointestinal: Yes: Normal Bowel Sounds, Soft Musculoskeletal: Yes: Other Extremities: Yes: WNL Neurological: Yes: Alert, Oriented Psychiatric: Yes: Alert, Oriented Labs: CBC, BMP 05/12/19 11:30 05/12/19 06:00 INR, PTT INR 0.90 (0.83-1.09) 05/11/19 09:15 Assessment/Plan Problem List - Problems (1) ESRD (end stage renal disease) on dialysis Code(s): N18.6 - END STAGE RENAL DISEASE; Z99.2 - DEPENDENCE ON RENAL DIALYSIS (2) Shortness of breath Code(s): R06.02 - SHORTNESS OF BREATH (3) CAD (coronary artery disease) Code(s): I25.10 - ATHSCL HEART DISEASE OF [place] CORONARY ARTERY W/O ANG PCTRS (4) COPD (chronic obstructive pulmonary disease) Code(s): J44.9 - CHRONIC OBSTRUCTIVE PULMONARY DISEASE, UNSPECIFIED (5) Diabetes Code(s): E11.9 - TYPE 2 DIABETES MELLITUS WITHOUT COMPLICATIONS Qualifiers: Diabetes mellitus type: type 1 Diabetes mellitus complication status: with kidney complications (6) HTN (hypertension) Code(s): I10 - ESSENTIAL (PRIMARY) HYPERTENSION (7) Hyperkalemia Code(s): E87.5 - HYPERKALEMIA i think her symptoms are due to fluid overload will not start abx close watch dialysis pain in the rt side of the abd probably muscular local pain mgmt
--- NOTE | 2019-05-13 15:28 | CON.CARD ---
Consult Consult Specialty:: Cardiology Referred by:: ty Emerson Reason for Consultation:: SOB. CHF - History of Present Illness Chief Complaint: SOB History of Present Illness: 73 year old with a pmhx of CAD s/p stent 11/16, TIKA, +tobacco, COPD, DM, htn, and ESRD on HD presenting with sob. Reports recent URI symptoms. SOB last 2-3 days and was getting extra dialysis sessions but prompted to go to the ER due to her degree of sob. No chest pain or palpitations. No edema. Feels much better since dialysis. K was 7.1 and now 4.9 CXR EKG: sinus rhythm with no acute ischemic changes Echocardiogram with normal LVEF and no significant valve disease. - History Source History Provided By: Patient, Medical Record - Past Medical History SOCIAL SERVICES COUNSELOR: Yes: CVA Cardio/Vascular: Yes: CAD (s/p stents) Pulmonary: Yes: COPD. 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 Travel: Yes ([place]) Home Medications - Allergies Allergies/Adverse Reactions: Allergies Allergy/AdvReac Type Severity Reaction Status Date / Time Dhewplp-Vca-Fbq Reductase AdvReac Unknown Verified 04/30/17 11:01 Inhibitor - Home Medications Home Medications: Ambulatory Orders Clopidogrel Bisulfate [Clopidogrel] 75 mg PO DAILY 04/02/17 Aspirin Coated [Ecotrin -] 81 mg PO DAILY tab 04/06/17 Insulin (Novolog) [Novolog -] 5 units SQ AC 04/30/17 Diltiazem HCl [Diltiazem ER] 120 mg PO DAILY 05/11/19 Famotidine 20 mg PO BID 05/11/19 Insulin Glargine,Hum.rec.anlog [Lantus Solostar PEN -] 30 units SQ HS 05/11/19 Ranolazine [Ranolazine ER] 500 mg PO BID 05/11/19 Vital Signs: Vital Signs Temperature 98.3 F 05/13/19 14:42 Pulse Rate 60 05/13/19 14:42 Respiratory Rate 16 05/13/19 14:42 Blood Pressure 127/63 05/13/19 14:42 O2 Sat by Pulse Oximetry (%) 98 05/13/19 11:19 Neck: Yes: Supple Respiratory: Yes: Diminished (at bases) Gastrointestinal: Yes: Soft JVD: Yes Carotid Bruit: No Heart Sounds: Yes: S1, S2 Murmur: No: Systolic Murmur Edema: No - Other Data Labs, Other Data: CBC, BMP 05/12/19 11:30 05/12/19 06:00 INR, PTT INR 0.90 (0.83-1.09) 05/11/19 09:15 Imaging - Results Chest X-ray: Report Reviewed EKG: Image Reviewed Assessment/Plan 73 year old with a pmhx of CAD s/p stent 11/16, TIKA, +tobacco, COPD, DM, htn, and ESRD on HD presenting with sob. Reports recent URI symptoms. SOB last 2-3 days and was getting extra dialysis sessions but prompted to go to the ER due to her degree of sob. No chest pain or palpitations. No edema. Feels much better since dialysis. K was 7.1 and now 4.9 CXR no active pulmonary disease EKG: sinus rhythm with no acute ischemic changes Echocardiogram with normal LVEF and no significant valve disease. 1) SOB likely due to volume overload in patient with ESRD and chronic diastolic CHF. Volume control with dialysis. Much more comfortable at this time. K improved with dialysis and now normal. F/u with renal team regarding dialysis sessions Echo with normal LVEF and no significant valve disease EKG no ischemic changes 2) CAD -H/o stent in past as per patient No chest pain No signs of ID EKG no acute ischemic changes Aspirin/plavix Unclear why not on statin. Recommended if no contraindication. Would stop ranexa in dialysis patient. Also unclear why on diltiazem and not beta jael. If she is able to take beta jael (doesn't cause her bronchospasm) than as outpatient consider changing. Will sign off at this time.
--- NOTE | 2019-05-13 17:50 | PN ---
Physical Exam: SUBJECTIVE: Patient seen and examined at the bedside. OBJECTIVE: 73 y/o female with PMH of ESRD on / for 3 years, CVA, Htn, CAD, DM, CPOD, former smoker. Admission to OSH with similiar complaints in January and underwent HD with improvement of symptoms. States she had URI symptoms x 2 weeks with clear sputum. No recent travel, no sick contacts. Presented to [facility] for extra HD sesions and she was prompted to go to ED. Vital Signs Period Temp Pulse Resp BP Sys/Moser Pulse Ox Last 24 Hr 97.7 F-98.3 F 60-107 16-20 115-127/56-64 98-99 GENERAL: The patient is awake, alert, and fully oriented, in no acute distress. HEAD: Normal with no signs of trauma. EYES: PERRL, extraocular movements intact, sclera anicteric, conjunctiva clear. No ptosis. ENT: Ears normal, nares patent, oropharynx clear without exudates, moist mucous membranes. NECK: Trachea midline, full range of motion, supple. LUNGS: Breath sounds equal, clear/diminished to auscultation bilaterally HEART: Regular rate and rhythm, ABDOMEN: Soft, nontender, nondistended, normoactive bowel sounds, no guarding, no rebound, no hepatosplenomegaly, no masses. EXTREMITIES: 2+ pulses, warm, well-perfused, no edema. NEUROLOGICAL: Cranial nerves II through XII grossly intact. Normal speech, gait not observed. PSYCH: Normal mood, normal affect. SKIN: Warm, dry, normal turgor, no rashes or lesions noted Laboratory Results - last 24 hr 05/12/19 05/13/19 22:15 06:17 POC Glucometer 206 90 Active Medications Generic Name Dose Route Start Last Admin Trade Name Freq PRN Reason Stop Dose Admin Acetaminophen 650 mg 05/11/19 13:01 05/12/19 16:20 Tylenol - PO 650 mg Q6H PRN Administration PAIN Albuterol/Ipratropium 1 amp 05/11/19 20:00 05/13/19 15:30 Duoneb - NEB 1 amp RQID TRUE Administration Aspirin 81 mg 05/12/19 10:00 05/13/19 10:52 Ecotrin - PO 81 mg DAILY TRUE Administration Clopidogrel Bisulfate 75 mg 05/12/19 10:00 05/13/19 10:52 Plavix - PO 75 mg DAILY TRUE Administration Diltiazem HCl 120 mg 05/12/19 10:00 05/13/19 10:52 Cardizem Cd - PO 120 mg DAILY TRUE Administration Famotidine 20 mg 05/11/19 22:00 05/13/19 10:52 Pepcid - PO 20 mg BID TRUE Administration Heparin Sodium (Porcine) 5,000 unit 05/11/19 22:00 05/13/19 10:53 Heparin - SQ 5,000 unit BID TRUE Administration Hydrocortisone 1 applic 05/11/19 14:35 Hytone 0.5% Cream - TP Q6H PRN FOR ITCHING Insulin Aspart 1 vial 05/11/19 16:30 05/13/19 07:01 Novolog Vial Sliding Scale - SQ Not Given ACHS [facility] Protocol Insulin Detemir 30 units 05/11/19 22:00 05/12/19 22:19 Levemir Vial SQ 30 units HS TRUE Administration Ranolazine 500 mg 05/11/19 22:00 05/13/19 10:52 Ranexa - PO 500 mg BID TRUE Administration ASSESSMENT/PLAN: Problem List - Problems (1) ESRD (end stage renal disease) on dialysis Assessment/Plan: dialysis scheduled for tomorrow shortness of breath improved with dialysis tolerating room air followed by pulmonary Code(s): N18.6 - END STAGE RENAL DISEASE; Z99.2 - DEPENDENCE ON RENAL DIALYSIS (2) PNA (pneumonia) Assessment/Plan: per ID, no need for antibiotics, no pneumonia suspected Code(s): J18.9 - PNEUMONIA, UNSPECIFIED ORGANISM Qualifiers: Pneumonia type: due to unspecified organism Laterality: right Lung location: lower lobe of lung Qualified Code(s): J18.9 - Pneumonia, unspecified organism (3) Respiratory distress Assessment/Plan: resolved with dialysis Code(s): R06.03 - ACUTE RESPIRATORY DISTRESS (4) Shortness of breath Code(s): R06.02 - SHORTNESS OF BREATH (5) CAD (coronary artery disease) Code(s): I25.10 - ATHSCL HEART DISEASE OF [place] CORONARY ARTERY W/O ANG PCTRS (6) COPD (chronic obstructive pulmonary disease) Assessment/Plan: not in acute exacerbation Code(s): J44.9 - CHRONIC OBSTRUCTIVE PULMONARY DISEASE, UNSPECIFIED (7) Diabetes Assessment/Plan: monitor bgms Code(s): E11.9 - TYPE 2 DIABETES MELLITUS WITHOUT COMPLICATIONS Qualifiers: Diabetes mellitus type: type 1 Diabetes mellitus complication status: with kidney complications (8) Prophylactic measure Code(s): Z29.9 - ENCOUNTER FOR PROPHYLACTIC MEASURES, UNSPECIFIED Visit type - Emergency Visit Emergency Visit: Yes ED Registration Date: 05/11/19 Care time: The patient presented to the Emergency Department on the above date and was hospitalized for further evaluation of their emergent condition. - New Patient This patient is new to me today: No - Critical Care Critical Care patient: No - Discharge Referral Referred to [facility] Med [facility] No
[2019-05-13] MEDS: INSULIN (LEVEMIR) 100 UNITS/ML UNITS SQ SCH (22:23)
[2019-05-13] MEDS ORDERED: MELATONIN 5 MG TABLETS PO PRN (22:45)
[2019-05-14] MEDS: ALBUTEROL SO4 2.5/IPRATROPIUM 0.5 INH SOL 3 ML VIAL.NEB. NEB SCH ×2 (08:21→11:56)
[2019-05-14] MEDS: INSULIN SLIDING SCALE (NOVOLOG) 1 VIAL SQ SCH ×3 (10:01→16:28)
[2019-05-14] MEDS ORDERED: INSULIN (NOVOLOG) ASPART 100 UNITS/ML 10ML VIAL ONE ×2 (10:07→16:31)
--- NOTE | 2019-05-14 10:09 | PN ---
Progress Note, Physician History of Present Illness: stable no new issues still wiht pain - Current Medication List Current Medications: Active Medications Acetaminophen (Tylenol -) 650 mg PO Q6H PRN PRN Reason: PAIN Last Admin: 05/12/19 16:20 Dose: 650 mg Albuterol/Ipratropium (Duoneb -) 1 amp NEB RQID [facility] Last Admin: 05/14/19 08:21 Dose: 1 amp Aspirin (Ecotrin -) 81 mg PO DAILY [facility] Last Admin: 05/13/19 10:52 Dose: 81 mg Clopidogrel Bisulfate (Plavix -) 75 mg PO DAILY [facility] Last Admin: 05/13/19 10:52 Dose: 75 mg Diltiazem HCl (Cardizem Cd -) 120 mg PO DAILY [facility] Last Admin: 05/13/19 10:52 Dose: 120 mg Famotidine (Pepcid -) 20 mg PO BID [facility] Last Admin: 05/13/19 22:20 Dose: 20 mg Heparin Sodium (Porcine) (Heparin -) 5,000 unit SQ BID [facility] Last Admin: 05/13/19 22:34 Dose: Not Given Hydrocortisone (Hytone 0.5% Cream -) 1 applic TP Q6H PRN PRN Reason: FOR ITCHING Insulin Aspart (Novolog Vial Sliding Scale -) 1 vial SQ [facility]; Protocol Last Admin: 05/14/19 10:01 Dose: 8 units Insulin Detemir (Levemir Vial) 30 units SQ HS [facility] Last Admin: 05/13/19 22:23 Dose: 30 units Melatonin (Melatonin) 5 mg PO HS PRN PRN Reason: INSOMNIA Last Admin: 05/13/19 22:52 Dose: 5 mg Ranolazine (Ranexa -) 500 mg PO BID [facility] Last Admin: 05/13/19 22:24 Dose: 500 mg - Objective Vital Signs: Vital Signs Temperature 97.6 F 05/14/19 05:00 Pulse Rate 87 05/14/19 05:00 Respiratory Rate 20 05/14/19 05:00 Blood Pressure 124/75 05/14/19 05:00 O2 Sat by Pulse Oximetry (%) 97 05/13/19 21:00 Constitutional: Yes: Calm, Mild Distress Cardiovascular: Yes: S1, S2 Respiratory: Yes: Regular, CTA Bilaterally Gastrointestinal: Yes: Normal Bowel Sounds, Soft Musculoskeletal: Yes: WNL Extremities: Yes: WNL Labs: CBC, BMP 05/12/19 11:30 05/12/19 06:00 INR, PTT INR 0.90 (0.83-1.09) 05/11/19 09:15 Assessment/Plan Problem List - Problems (1) ESRD (end stage renal disease) on dialysis Code(s): N18.6 - END STAGE RENAL DISEASE; Z99.2 - DEPENDENCE ON RENAL DIALYSIS (2) Shortness of breath Code(s): R06.02 - SHORTNESS OF BREATH (3) CAD (coronary artery disease) Code(s): I25.10 - ATHSCL HEART DISEASE OF [place] CORONARY ARTERY W/O ANG PCTRS (4) COPD (chronic obstructive pulmonary disease) Code(s): J44.9 - CHRONIC OBSTRUCTIVE PULMONARY DISEASE, UNSPECIFIED (5) Diabetes Code(s): E11.9 - TYPE 2 DIABETES MELLITUS WITHOUT COMPLICATIONS Qualifiers: Diabetes mellitus type: type 1 Diabetes mellitus complication status: with kidney complications (6) HTN (hypertension) Code(s): I10 - ESSENTIAL (PRIMARY) HYPERTENSION (7) Hyperkalemia Code(s): E87.5 - HYPERKALEMIA plan dialysis rest as per the team
[2019-05-14] MEDS: CLOPIDOGREL BISULFATE 75 MG TABLET (FP) PO SCH (10:10)
[2019-05-14] MEDS: HEPARIN NA (PORCINE) 5,000 UNITS/ML 1ML VIAL SQ SCH (10:10)
[2019-05-14] MEDS: FAMOTIDINE 20 MG TABLET PO SCH (10:11)
[2019-05-14] MEDS: ASPIRIN COATED 81 MG TABLET.EC PO SCH (10:12)
[2019-05-14] MEDS ORDERED: SODIUM CHLORIDE 250 ML IV PRN ×2 (10:51→10:52)
[2019-05-14] MEDS ORDERED: HEPARIN NA (PORCINE) 5,000 UNITS/ML 1ML VIAL IVPUSH ONE (10:52)
[2019-05-14] MEDS ORDERED: HEPARIN NA (PORCINE) 5,000 UNITS/ML 1ML VIAL IVPUSH SCH (11:00)
[2019-05-14] MEDS: ACETAMINOPHEN 325 MG TABLET (FP) PO PRN (11:07)
--- NOTE | 2019-05-14 11:21 | PN ---
Progress Note (short form) - Note Progress Note: Resting in NAD on RA. No CP or SOB. No acute events overnight. No hemoptysis. Intake & Output 05/11/19 05/12/19 05/13/19 05/14/19 23:59 23:59 23:59 23:59 Intake Total 400 650 730 240 Output Total 3000 2400 Balance -2600 -1750 730 240 Weight 179 lb 9.6 oz 166 lb 12.8 oz 166 lb 11.2 oz Last Vital Signs Temp Pulse Resp BP Pulse Ox 97.6 F 102 H 15 142/47 L 97 05/14/19 09:00 05/14/19 09:00 05/14/19 09:00 05/14/19 09:00 05/13/19 21:00 Active Medications Acetaminophen (Tylenol -) 650 mg PO Q6H PRN PRN Reason: PAIN Last Admin: 05/14/19 11:07 Dose: 650 mg Albuterol/Ipratropium (Duoneb -) 1 amp NEB RQID [facility] Last Admin: 05/14/19 08:21 Dose: 1 amp Aspirin (Ecotrin -) 81 mg PO DAILY [facility] Last Admin: 05/14/19 10:12 Dose: 81 mg Clopidogrel Bisulfate (Plavix -) 75 mg PO DAILY [facility] Last Admin: 05/14/19 10:10 Dose: 75 mg Diltiazem HCl (Cardizem Cd -) 120 mg PO DAILY [facility] Last Admin: 05/14/19 10:09 Dose: 120 mg Famotidine (Pepcid -) 20 mg PO BID [facility] Last Admin: 05/14/19 10:11 Dose: 20 mg Heparin Sodium (Porcine) (Heparin -) 5,000 unit SQ BID [facility] Last Admin: 05/14/19 10:10 Dose: 5,000 unit Heparin Sodium (Porcine) (Heparin -) 300 unit IVPUSH ONCE ONE Stop: 05/14/19 10:53 Heparin Sodium (Porcine) (Heparin -) 300 unit IVPUSH Q1H [facility] Stop: 05/14/19 13:01 Hydrocortisone (Hytone 0.5% Cream -) 1 applic TP Q6H PRN PRN Reason: FOR ITCHING Sodium Chloride (Normal Saline -) 250 mls @ 3,000 mls/hr IV PRN PRN PRN Reason: Hypotension during Dialysis Stop: 05/15/19 10:52 Sodium Chloride (Normal Saline -) 250 mls @ 3,000 mls/hr IV PRN PRN PRN Reason: Hypotension during Dialysis Stop: 05/15/19 10:52 Insulin Aspart (Novolog Vial Sliding Scale -) 1 vial SQ ACHS [facility]; Protocol Last Admin: 05/14/19 10:01 Dose: 8 units Insulin Detemir (Levemir Vial) 30 units SQ HS TRUE Last Admin: 05/13/19 22:23 Dose: 30 units Melatonin (Melatonin) 5 mg PO HS PRN PRN Reason: INSOMNIA Last Admin: 05/13/19 22:52 Dose: 5 mg Ranolazine (Ranexa -) 500 mg PO BID TRUE Last Admin: 05/13/19 22:24 Dose: 500 mg Constitutional: Yes: Well Nourished, NAD Eyes: Yes: Occular Prosthesis HENT: Yes: WNL Neck: Yes: WNL Cardiovascular: Yes: Regular Rate and Rhythm, S1, S2 Respiratory: Yes: Diminished Gastrointestinal: Yes: Normal Bowel Sounds, Soft Extremities: Yes: WNL Edema: No Labs: Laboratory Results - last 24 hr 05/13/19 05/13/19 05/14/19 17:54 22:13 06:15 POC Glucometer 589 175 79 05/14/19 05/14/19 07:03 09:23 POC Glucometer 153 255 Assessment/Plan Problem List - Problems (1) ESRD (end stage renal disease) on dialysis Code(s): N18.6 - END STAGE RENAL DISEASE; Z99.2 - DEPENDENCE ON RENAL DIALYSIS (2) Shortness of breath Code(s): R06.02 - SHORTNESS OF BREATH (3) CAD (coronary artery disease) Code(s): I25.10 - ATHSCL HEART DISEASE OF [place] CORONARY ARTERY W/O ANG PCTRS (4) COPD (chronic obstructive pulmonary disease) Code(s): J44.9 - CHRONIC OBSTRUCTIVE PULMONARY DISEASE, UNSPECIFIED (5) Diabetes Code(s): E11.9 - TYPE 2 DIABETES MELLITUS WITHOUT COMPLICATIONS Qualifiers: Diabetes mellitus type: type 1 Diabetes mellitus complication status: with kidney complications (6) HTN (hypertension) Code(s): I10 - ESSENTIAL (PRIMARY) HYPERTENSION (7) Hyperkalemia Code(s): E87.5 - HYPERKALEMIA Assessment/Plan IMP: Do not suspect Respiratory Tact Infection or bacterial infection Likely resolving URI Volume overload as etiology of SOB Severe Hyperkalemia HD per Renal O2 as needed [facility] workup as an outpatient No smoking PFTs once stable as an outpatient Dr Deras Problem List - Problems (1) ESRD (end stage renal disease) on dialysis Code(s): N18.6 - END STAGE RENAL DISEASE; Z99.2 - DEPENDENCE ON RENAL DIALYSIS (2) Shortness of breath Code(s): R06.02 - SHORTNESS OF BREATH (3) CAD (coronary artery disease) Code(s): I25.10 - ATHSCL HEART DISEASE OF [place] CORONARY ARTERY W/O ANG PCTRS (4) COPD (chronic obstructive pulmonary disease) Code(s): J44.9 - CHRONIC OBSTRUCTIVE PULMONARY DISEASE, UNSPECIFIED (5) Diabetes Code(s): E11.9 - TYPE 2 DIABETES MELLITUS WITHOUT COMPLICATIONS Qualifiers: Diabetes mellitus type: type 1 Diabetes mellitus complication status: with kidney complications (6) HTN (hypertension) Code(s): I10 - ESSENTIAL (PRIMARY) HYPERTENSION (7) Hyperkalemia Code(s): E87.5 - HYPERKALEMIA
[2019-05-14] MEDS: RANOLAZINE E.R. 500 MG TABLET (FP) PO SCH (11:30)
[2019-05-14 12:12] LABS: BASO % 0.7 % (0-2.0); EOS % 1.1 % (0-4.5); HEMATOCRIT 41.1 % (32.4-45.2); HEMOGLOBIN 13.1 GM/dL (10.7-15.3); LYMPH % 21.8 % (8-40); MCH 28.2 pg (25.7-33.7); MCHC 31.9 g/dl (32.0-36.0); MEAN CELL VOLUME 88.4 fl (80-96); MEAN PLT VOLUME 10.4 fl (7.5-11.1); MONO % 8.2 % (3.8-10.2); NEUT % 68.2 % (42.8-82.8); PLATELET COUNT 215 K/MM3 (134-434); RBC 4.65 M/mm3 (3.60-5.2); WHITE BLOOD COUNT 9.5 K/mm3 (4.0-10.0)
--- NOTE | 2019-05-14 12:35 | DS ---
Physical Exam: SUBJECTIVE: Patient seen and examined at the bedside. patient agrees to outpatient follow up. OBJECTIVE: Patient is a 73 year old female with PMHx of ESRD on HS // for 3 years, CVA , Htn, CAD, DM, CPOD, former smoker. Admission to OSH with similiar complaints in January and underwent HD with improvement of symptoms. States she had URI symptoms x 2 weeks with clear sputum. No recent travel, no sick contacts. Presented to [facility] for extra HD sesions and she was prompted to go to ED. Vital Signs Period Temp Pulse Resp BP Sys/Moser Pulse Ox Last 24 Hr 97.6 F-98.6 F 60-102 15-20 124-142/47-76 94-97 PHYSICAL EXAM GENERAL: The patient is awake, alert, and fully oriented, in no acute distress. HEAD: Normal with no signs of trauma. EYES: PERRL, extraocular movements intact, sclera anicteric, conjunctiva clear. No ptosis. ENT: Ears normal, nares patent, oropharynx clear without exudates, moist mucous membranes. NECK: Trachea midline, full range of motion, supple. LUNGS: Breath sounds equal, clear/diminished to auscultation bilaterally HEART: Regular rate and rhythm, ABDOMEN: Soft, nontender, nondistended, normoactive bowel sounds, no guarding, no rebound, no hepatosplenomegaly, no masses. EXTREMITIES: 2+ pulses, warm, well-perfused, no edema. NEUROLOGICAL: Cranial nerves II through XII grossly intact. Normal speech, gait not observed. PSYCH: Normal mood, normal affect. SKIN: Warm, dry, normal turgor, no rashes or lesions noted LABS Laboratory Results - last 24 hr 05/13/19 05/13/19 05/14/19 17:54 22:13 06:15 WBC RBC Hgb Hct MCV MCH MCHC RDW Plt Count MPV Absolute Neuts (auto) Neutrophils % Lymphocytes % Monocytes % Eosinophils % Basophils % Nucleated RBC % POC Glucometer 589 175 79 05/14/19 05/14/19 05/14/19 07:03 09:23 11:15 WBC 9.5 RBC 4.65 Hgb 13.1 Hct 41.1 MCV 88.4 MCH 28.2 MCHC 31.9 L RDW 18.0 H Plt Count 215 MPV 10.4 Absolute Neuts (auto) 6.5 Neutrophils % 68.2 Lymphocytes % 21.8 Monocytes % 8.2 Eosinophils % 1.1 Basophils % 0.7 Nucleated RBC % 0 POC Glucometer 153 255 05/14/19 12:08 WBC RBC Hgb Hct MCV MCH MCHC RDW Plt Count MPV Absolute Neuts (auto) Neutrophils % Lymphocytes % Monocytes % Eosinophils % Basophils % Nucleated RBC % POC Glucometer 198 HOSPITAL COURSE: Date of Admission:05/11/19 Date of Discharge: 05/14/19 Minutes to complete discharge: 45 Discharge Summary Problems reviewed: Yes Reason For Visit: RESPIRATORY DISTRESS,PNEUMONIA Current Active Problems ESRD (end stage renal disease) on dialysis (Acute) PNA (pneumonia) (Acute) Prophylactic measure (Acute) Pulmonary HTN (Acute) Respiratory distress (Acute) Shortness of breath (Acute) Troponin I above reference range (Acute) Condition: Stable - Instructions Diet, Activity, Other Instructions: Mrs Crabtree You will be discharged home today. Please continue your home medications and please see your PCP within 3-5 days for post hospital follow up. Thank you for allowing us to care for us. Referrals: Tamiko Gibbs MD [Primary Care Provider] - Disposition: HOME - Home Medications Comprehensive Discharge Medication List: Ambulatory Orders Clopidogrel Bisulfate [Clopidogrel] 75 mg PO DAILY 04/02/17 Aspirin Coated [Ecotrin -] 81 mg PO DAILY tab 04/06/17 Insulin (Novolog) [Novolog -] 5 units SQ AC 04/30/17 Diltiazem HCl [Diltiazem 24Hr ER] 120 mg PO DAILY 05/11/19 Famotidine 20 mg PO BID 05/11/19 Insulin Glargine,Hum.rec.anlog [Lantus Solostar PEN -] 30 units SQ HS 05/11/19 Ranolazine [Ranolazine ER] 500 mg PO BID 05/11/19 Problem List - Problems (1) ESRD (end stage renal disease) on dialysis Assessment/Plan: Tolerating dialysis well today. BP stable. labs stable. Renal US showed no pathology continue present antihypertensive medications stable for discharge per renal and can can resume dialysis as an outpatient on Saturday. Code(s): N18.6 - END STAGE RENAL DISEASE; Z99.2 - DEPENDENCE ON RENAL DIALYSIS (2) PNA (pneumonia) Assessment/Plan: per ID, no need for antibiotics, no pneumonia suspected Code(s): J18.9 - PNEUMONIA, UNSPECIFIED ORGANISM Qualifiers: Pneumonia type: due to unspecified organism Laterality: right Lung location: lower lobe of lung Qualified Code(s): J18.9 - Pneumonia, unspecified organism (3) Respiratory distress Assessment/Plan: resolved with dialysis Code(s): R06.03 - ACUTE RESPIRATORY DISTRESS (4) Shortness of breath Code(s): R06.02 - SHORTNESS OF BREATH (5) CAD (coronary artery disease) Code(s): I25.10 - ATHSCL HEART DISEASE OF [place] CORONARY ARTERY W/O ANG PCTRS (6) COPD (chronic obstructive pulmonary disease) Assessment/Plan: not in acute exacerbation Code(s): J44.9 - CHRONIC OBSTRUCTIVE PULMONARY DISEASE, UNSPECIFIED (7) Diabetes Assessment/Plan: monitor bgms Code(s): E11.9 - TYPE 2 DIABETES MELLITUS WITHOUT COMPLICATIONS Qualifiers: Diabetes mellitus type: type 1 Diabetes mellitus complication status: with kidney complications (8) Prophylactic measure Code(s): Z29.9 - ENCOUNTER FOR PROPHYLACTIC MEASURES, UNSPECIFIED This patient is new to me today: No Emergency Visit: Yes ED Registration Date: 05/11/19 Care time: The patient presented to the Emergency Department on the above date and was hospitalized for further evaluation of their emergent condition. Critical Care patient: No - Discharge Referral Referred to [facility] Med P.C.: No
[2019-05-14 12:42] LABS: ALBUMIN 3.2 g/dl (3.4-5.0); BILIRUBIN,TOTAL 0.4 mg/dL (0.2-1); BLOOD UREA NITROGEN 45.1 mg/dL (7-18); CALCIUM 8.3 mg/dL (8.5-10.1); CREATININE 7.2 mg/dL (0.55-1.3); MAGNESIUM 1.9 mg/dL (1.8-2.4); POTASSIUM 4.4 mmol/L (3.5-5.1); TOT PROT 6.3 g/dl (6.4-8.2)
--- NOTE | 2019-05-14 12:43 | PN ---
Progress Note (short form) - Note Progress Note: Renal follow up for ESRD on HD Seen and examined at the bedside during dialysis is awake and alert offers no acute complaints access functioning well, Goal UF is 3L BP stable Vital Signs Temperature 97.6 F 05/14/19 09:00 Pulse Rate 101 H 05/14/19 11:15 Respiratory Rate 18 05/14/19 11:15 Blood Pressure 137/72 05/14/19 11:15 O2 Sat by Pulse Oximetry (%) 94 L 05/14/19 09:00 Intake & Output 05/11/19 05/12/19 05/13/19 05/14/19 23:59 23:59 23:59 23:59 Intake Total 400 650 730 240 Output Total 3000 2400 Balance -2600 -1750 730 240 Weight 81.465 kg 75.659 kg 75.614 kg NAD RRR CTA, no rales or wheeze soft NT/ND no LE edema left forearm AVF CBC, BMP 05/14/19 11:15 Current Medications Acetaminophen (Tylenol -) 650 mg PO Q6H PRN PRN Reason: PAIN Last Admin: 05/14/19 11:07 Dose: 650 mg Albuterol/Ipratropium (Duoneb -) 1 amp NEB RQID [facility] Last Admin: 05/14/19 11:56 Dose: 1 amp Aspirin (Ecotrin -) 81 mg PO DAILY [facility] Last Admin: 05/14/19 10:12 Dose: 81 mg Clopidogrel Bisulfate (Plavix -) 75 mg PO DAILY [facility] Last Admin: 05/14/19 10:10 Dose: 75 mg Diltiazem HCl (Cardizem Cd -) 120 mg PO DAILY [facility] Last Admin: 05/14/19 10:09 Dose: 120 mg Famotidine (Pepcid -) 20 mg PO BID [facility] Last Admin: 05/14/19 10:11 Dose: 20 mg Heparin Sodium (Porcine) (Heparin -) 5,000 unit SQ BID [facility] Last Admin: 05/14/19 10:10 Dose: 5,000 unit Heparin Sodium (Porcine) (Heparin -) 300 unit IVPUSH ONCE ONE Stop: 05/14/19 10:53 Heparin Sodium (Porcine) (Heparin -) 300 unit IVPUSH Q1H [facility] Stop: 05/14/19 13:01 Hydrocortisone (Hytone 0.5% Cream -) 1 applic TP Q6H PRN PRN Reason: FOR ITCHING Sodium Chloride (Normal Saline -) 250 mls @ 3,000 mls/hr IV PRN PRN PRN Reason: Hypotension during Dialysis Stop: 05/15/19 10:52 Sodium Chloride (Normal Saline -) 250 mls @ 3,000 mls/hr IV PRN PRN PRN Reason: Hypotension during Dialysis Stop: 05/15/19 10:52 Insulin Aspart (Novolog Vial Sliding Scale -) 1 vial SQ ACHS TRUE; Protocol Last Admin: 05/14/19 12:19 Dose: Not Given Insulin Detemir (Levemir Vial) 30 units SQ HS TRUE Last Admin: 05/13/19 22:23 Dose: 30 units Melatonin (Melatonin) 5 mg PO HS PRN PRN Reason: INSOMNIA Last Admin: 05/13/19 22:52 Dose: 5 mg Ranolazine (Ranexa -) 500 mg PO BID TRUE Last Admin: 05/14/19 11:30 Dose: 500 mg 73 year old woman with history of ESRSD on Hd (TTS) x 3 years , CVA, Hypertension, CAD, DM who presented from the dialysis unit with shortness of breath, cough with sputum production and elevated blood pressures. 1. ESRD on HD 2. Hyperkalemia secondary to non-adherence to dietary restrictions 3. Cough with sputum production from UTI vs. Bronchitis 4. Uncontrolled hypertension 5. Leukocytosis Tolerating dialysis well this AM Renal US showed no pathology, so flank pain is likely musculoskeletal in etiology continue present antihypertensive medications stable for discharge can can resume dialysis as an outpatient on Saturday. Thank you Rory Majro DO
[2019-05-14 16:21] VITALS: BP 147/53; PULSE 95; TEMP 98.6
== END 2019-05-14 16:45 | disposition home or self-care (01) | DRG 291 ==
LOC: JER 08:36 → JERBED 10:10 → J4W 18:44
PROVIDERS: ADMIT Hospitalist; ATTEND Nurse Practitioner Family
PROC: 5A1D70Z Performance of Urinary Filtration, Intermittent, Less than 6 Hours Per Day (ICD-10-PCS; principal; 2019-05-14)
DX: I13.2 Hypertensive heart and chronic kidney disease with heart failure and with stage 5 chronic kidney disease, or end stage renal disease (principal); N18.6 End stage renal disease; I50.32 Chronic diastolic (congestive) heart failure; E87.70 Fluid overload, unspecified; E87.5 Hyperkalemia; I25.10 Atherosclerotic heart disease of native coronary artery without angina pectoris; D72.829 Elevated white blood cell count, unspecified; J44.9 Chronic obstructive pulmonary disease, unspecified; J06.9 Acute upper respiratory infection, unspecified; E11.9 Type 2 diabetes mellitus without complications; R06.03 Acute respiratory distress; I27.20 Pulmonary hypertension, unspecified; Z98.61 Coronary angioplasty status; Z99.2 Dependence on renal dialysis
CPT/HCPCS: 36415; 71045-TC-FY; 76775-TC; 80053; 82550; 82803; 82962; 83036; 83605; 83735; 83880; 84100; 84484; 85025; 85610; 85730; 86803; 86850; 86900; 86901; 87040; 87340; 93005; 93010; 93306-TC; 94640; 94761; 99284-25; G0480; J1644